=== PATIENT | male | born 1990 | race Caucasian/White ===

== ENCOUNTER 2019-01-26 07:03 | Inpatient (IN) | payer MEDICAID ==
[~2019-01-26] VITALS: Ht 177.8 cm; Wt 72.6 kg
[2019-01-26] MEDS ORDERED: Morphine Sulfate 4mg/ml Inj (IV USE ONLY) IVP ONE ×2 (07:15→08:45)
[2019-01-26 07:27] LABS: BASOPHILS % (AUTO) 1.1 % (0.0-2.0); EOSINOPHILS % (AUTO) 0.1 % (0.0-3.0); HEMATOCRIT 48.5 % (42.0-52.0); LYMPHOCYTES % (AUTO) 12.8 % (20.0-45.0); MEAN CORPUSCULAR VOLUME 105 FL (80-99); MONOCYTES % (AUTO) 4.5 % (1.0-10.0); NEUTROPHILS % (AUTO) 81.4 % (45.0-75.0); PLATELET COUNT 296 K/UL (150-450); RED BLOOD COUNT 4.61 M/UL (4.70-6.10); RED CELL DISTRIBUTION WIDTH 11.8 % (11.6-14.8)
--- NOTE | 2019-01-26 07:31 | Emergency Room Report ---
History of Present Illness General Chief Complaint: Abdominal Pain Source: Patient, EMS Present Illness HPI Patient has a history of alcohol abuse. He states he is also homeless. He states he has a history of pancreatitis. He states his last episode was about a year ago. He states he has been drinking heavily and not drinking much water. He states that about 6 hours ago he developed epigastric pain and recurrent nausea and vomiting consistent with previous episode of pancreatitis. He does not smoke tobacco. He does use marijuana but denies any other drug use. He has not had a drink of alcohol about 8-10 hours. He does have an history of alcohol withdrawal. Allergies: Coded Allergies: PENICILLINS (Verified Allergy, Unknown, 01/26/19) Patient History Past Medical History: see triage record, HTN, other - ETOH abuse, pancreatitis Social History: Reports: alcohol use, drug use - THC; Denies: smoking Reviewed Nursing Documentation: PMH: Agreed; PSxH: Agreed Nursing Documentation-PMH Past Medical History: No History, Except For Hx Hypertension: Yes Review of Systems All Other Systems: negative except mentioned in HPI Physical Exam Vital Signs Date Time Temp Pulse Resp B/P (MAP) Pulse Ox O2 Delivery O2 Flow Rate FiO2 01/26/19 06:58 68 18 140/72 Room Air Sp02 EP Interpretation: reviewed, normal General Appearance: no apparent distress, alert, GCS 15, non-toxic Head: normocephalic, atraumatic Eyes: bilateral eye normal inspection, bilateral eye PERRL ENT: hearing grossly normal, normal pharynx, no angioedema, normal voice Neck: full range of motion, supple/symm/no masses Respiratory: chest non-tender, lungs clear, normal breath sounds, no respiratory distress, no retraction, no accessory muscle use, speaking full sentences Cardiovascular #1: regular rate, rhythm, no edema Gastrointestinal: normal bowel sounds, soft, non-distended, no guarding, no rebound, tenderness - exquistely TTP in the epigastrium Rectal: deferred Musculoskeletal: back normal, gait/station normal, normal range of motion, non- tender Neurologic: alert, oriented x3, responsive, motor strength/tone normal, sensory intact, speech normal Psychiatric: judgement/insight normal, memory normal, mood/affect normal, no suicidal/homicidal ideation Skin: normal color, no rash, warm/dry, well hydrated Medical Decision Making Diagnostic Impression: Primary Impression: Pancreatitis Last Vital Signs Date Time Temp Pulse Resp B/P (MAP) Pulse Ox O2 Delivery O2 Flow Rate FiO2 01/26/19 06:58 68 18 140/72 Room Air Tania Al DO Jan 26, 2019 07:31
[2019-01-26 07:34] LABS: ANION GAP 14 mmol/L (5-15); BLOOD UREA NITROGEN 6 mg/dL (7-18); CALCIUM 9.2 MG/DL (8.5-10.1); CARBON DIOXIDE 28 MMOL/L (21-32); CHLORIDE 101 MMOL/L (98-107); CREATININE 0.8 MG/DL (0.55-1.30); POTASSIUM 4.2 MMOL/L (3.5-5.1); SODIUM 143 MMOL/L (136-145)
[2019-01-26 07:40] LABS: ALANINE AMINOTRANSFERASE 91 U/L (12-78); ALBUMIN 4.7 G/DL (3.4-5.0); ALBUMIN/GLOBULIN RATIO 1.3 (1.0-2.7); ALKALINE PHOSPHATASE 74 U/L (46-116); ASPARTATE AMINO TRANSFERASE 136 U/L (15-37); BILIRUBIN,TOTAL 0.5 MG/DL (0.2-1.0)
--- NOTE | 2019-01-26 07:49 | NUR ---
ED Nurse Note: Pt BIBA from home due to complaints of vomiting since 0500. Pt has a tendency to drink alcohol. A + O x4. Ambulatory. Skin warm to touch.
--- NOTE | 2019-01-26 07:50 | NUR ---
ED Nurse Note: Pt is complaining of abdominal pain 10/10. Non radiating.
[2019-01-26 07:51] VITALS: BP 126/71
[2019-01-26 07:53] LABS: APPEARANCE,URINE CLEAR; BILIRUBIN, URINE NEGATIVE (NEGATIVE); GLUCOSE, URINE (UA) 1+ (NEGATIVE); KETONES,URINE 2+ (NEGATIVE); LEUKOCYTE ESTERASE ,URINE NEGATIVE (NEGATIVE); NITRITE,URINE NEGATIVE (NEGATIVE); PH,URINE 6.5 (4.5-8.0); PROTEIN,URINE 2+ (NEGATIVE); UROBILINOGEN,URINE NORMAL MG/DL (0.0-1.0)
[2019-01-26 08:04] LABS: COLOR,URINE YELLOW
--- NOTE | 2019-01-26 08:55 | NUR ---
ED Nurse Note: Pt states that he will have all of his belongings and bakcpack taken back home w/ friend.
--- NOTE | 2019-01-26 09:05 | NUR ---
ED Nurse Note: Spoke to US Evrent, and notified her of the order. As per US Evrent, ERMD said okay to wait until admit to do US due to pt having abdominal pain. Will continue to monitor.
[2019-01-26] MEDS ORDERED: NKM (09:41)
[2019-01-26 10:03] VITALS: BP 137/96
[2019-01-26 11:44] VITALS: BP 134/78
--- NOTE | 2019-01-26 12:54 | NUR ---
ED Nurse Note: US completed at the bedside.
--- NOTE | 2019-01-26 13:01 | NUR ---
ED Nurse Note: Gave telephone report to LAUREN Soto.
--- NOTE | 2019-01-26 13:03 | NUR ---
ED Nurse Note: Admission packet pending.
--- NOTE | 2019-01-26 13:30 | NUR ---
ED Nurse Note: Pt.transferred via gurney to Tele with all belongings. Pt. attached to playground monitor for continuous monitoring. IV access intact and patent. EKG, admission packet and belongings list endorsed to the receiving nurse LAUREN Soto. No s/s of acute distress noted during the transfer
[2019-01-26 13:48] VITALS: BP 163/103
--- NOTE | 2019-01-26 13:59 | NUR ---
NURSE NOTES: received pt aox4, sacral intact, call light within reach. no sob. relayed to Dr Garduno re sbp awaiting admit orders no n/v at this time.
[2019-01-26] MEDS ORDERED: Morphine Sulfate 2mg/ml Inj(IV/IM USE ONLY) IVP PRN (14:15)
[2019-01-26] MEDS ORDERED: Morphine Sulfate 4mg/ml Inj (IV USE ONLY) IVP PRN (14:15)
--- NOTE | 2019-01-26 14:29 | History & Physical ---
History and Physical History & Physicial HP dictated # [id number] Nishant Garduno MD Jan 26, 2019 14:29
[2019-01-26 15:37] VITALS: BP 142/120
[2019-01-26] MEDS ORDERED: D5 1/2NS w/KCl 20mEq 1,000 ML IV SCH (16:00)
[2019-01-26] MEDS: Morphine Sulfate 4mg/ml Inj (IV USE ONLY) IVP PRN (18:01)
[2019-01-26] MEDS: D5 1/2NS w/KCl 20mEq 1,000 ML IV SCH (18:01)
--- NOTE | 2019-01-26 19:17 | NUR ---
HAND-OFF: Report given to AMEE AGUILAR.
--- NOTE | 2019-01-26 19:20 | NUR ---
NURSE NOTES: Report received from LAUREN Soto. Pt is lying comfortably in semi-fowlers with no signs of distress. Pt is A+Ox4 and shows no signs of pain/SOB. Respirations are even and unlabored on room air. IV site is patent, intact, and running fluids @ prescribed rate. Bed is at lowest position, brakes engaged, siderails x3, bed alarm on, and call light within reach. Pt is in stable condition at this time; will continue to monitor.
[2019-01-26 20:00] VITALS: BP 132/94
[2019-01-27] VITALS: BP 145/86
[2019-01-27] MEDS: D5 1/2NS w/KCl 20mEq 1,000 ML IV SCH ×4 (00:36→21:03)
[2019-01-27] MEDS: Morphine Sulfate 2mg/ml Inj(IV/IM USE ONLY) IVP PRN (05:29)
--- NOTE | 2019-01-27 07:07 | NUR ---
HAND-OFF: Report given to LAUREN Peter. Pt is in stable condition; plan of care endorsed.
--- NOTE | 2019-01-27 07:10 | NUR ---
NURSE NOTES: I received the patient awake and resting in bed. Patient alert and oriented x4. Patient denied experiencing pain. Bed in the lowest position and call light within reach. I will continue to monitor the patient and implement care.
[2019-01-27 07:27] LABS: BASOPHILS % (AUTO) 0.9 % (0.0-2.0); HEMATOCRIT 43.7 % (42.0-52.0); HEMOGLOBIN 14.9 G/DL (14.2-18.0); LYMPHOCYTES % (AUTO) 14.8 % (20.0-45.0); MEAN CORPUSCULAR VOLUME 105 FL (80-99); MONOCYTES % (AUTO) 9.6 % (1.0-10.0); NEUTROPHILS % (AUTO) 74.7 % (45.0-75.0); PLATELET COUNT 196 K/UL (150-450); RED BLOOD COUNT 4.16 M/UL (4.70-6.10); RED CELL DISTRIBUTION WIDTH 11.5 % (11.6-14.8)
[2019-01-27 07:45] LABS: CHOLESTEROL 137 MG/DL (< 200); HDL CHOLESTEROL 75 MG/DL (40-60); TRIGLYCERIDES 62 MG/DL (30-150)
[2019-01-27 08:00] VITALS: BP 132/97
--- NOTE | 2019-01-27 08:20 | NUR ---
NURSE NOTES: Dr. Garduno made aware of patient's magnesium level of 1.3. Order received and entered.
--- NOTE | 2019-01-27 10:36 | NUR ---
CASE MANAGEMENT:REVIEW 28 YR OLD MALE BIBA FROM [facility] CC: ABDOMINAL PAIN W/ITH N/V SI: PANCREATITIS. ETOH ABUSE 97.5 68 18 140/72 96% ON RA LIPASE>2000 IS: IV ZOFRAN IV PEPCID 1L NS BOLUS IV MORPHINE : TO TELEMETRY IS: IVF@125/HR INTERQUAL CRITERIA MET
[2019-01-27] MEDS: Morphine Sulfate 4mg/ml Inj (IV USE ONLY) IVP PRN ×2 (10:59→18:29)
[2019-01-27 12:08] VITALS: BP 155/95
--- NOTE | 2019-01-27 12:25 | General Progress Note ---
Assessment/Plan Problem List: (1) Acute pancreatitis ICD Codes: K85.90 - Acute pancreatitis without necrosis or infection, unspecified SNOMED: 463000528 (2) Hypomagnesemia ICD Codes: E83.42 - Hypomagnesemia SNOMED: 169459488 (3) Abdominal pain ICD Codes: R10.9 - Unspecified abdominal pain SNOMED: 49258717 Assessment/Plan Continue n.p.o. status. Continue with the pain medications. Repeat lipase tomorrow. Continue with proton pump inhibitors. Replete magnesium Follow magnesium level. Subjective Allergies: Coded Allergies: PENICILLINS (Verified Allergy, Unknown, 01/26/19) Subjective Patient still has abdominal pain. Objective Last 24 Hour Vital Signs Date Time Temp Pulse Resp B/P (MAP) Pulse Ox O2 Delivery O2 Flow Rate FiO2 01/27/19 12:08 98.6 97 16 155/95 (115) 100 01/27/19 11:29 98.7 01/27/19 11:25 68 01/27/19 08:58 Room Air 01/27/19 08:00 98.7 63 18 132/97 (109) 100 01/27/19 07:44 62 01/27/19 04:00 67 01/27/19 00:00 63 01/27/19 00:00 99.0 64 20 145/86 (105) 100 01/26/19 21:00 Room Air 01/26/19 20:00 99.6 77 20 132/94 (107) 99 01/26/19 15:37 99.1 86 18 142/120 (127) 99 01/26/19 15:31 69 01/26/19 14:00 Room Air 01/26/19 13:48 98.3 80 18 163/103 (123) 99 01/26/19 13:30 98.0 78 17 128/76 100 Room Air Intake and Output 01/26/19 01/27/19 19:00 07:00 Intake Total 2150 ml Output Total 500 ml Balance 2150 ml -500 ml Intake IV Total 2150 ml Output Urine Total 500 ml # Voids 3 Laboratory Tests 01/27/19 05:05: White Blood Count 6.0, Red Blood Count 4.16L, Hemoglobin 14.9, Hematocrit 43.7, Mean Corpuscular Volume 105H, Mean Corpuscular Hemoglobin 35.7H, Mean Corpuscular Hemoglobin Concent 34.0, Red Cell Distribution Width 11.5L, Platelet Count 196, Mean Platelet Volume 5.4L, Neutrophils (%) (Auto) 74.7, Lymphocytes (%) (Auto) 14.8L, Monocytes (%) (Auto) 9.6, Eosinophils (%) (Auto) 0.0, Basophils (%) (Auto) 0.9, Hemoglobin A1c 4.9, Magnesium Level 1.3L, Triglycerides Level 62, Cholesterol Level 137, LDL Cholesterol 45, HDL Cholesterol 75H, Cholesterol/HDL Ratio 1.8L Height (Feet): 5 Height (Inches): 10.00 Weight (Pounds): 160 Cardiovascular: normal rate Respiratory/Chest: lungs clear Abdomen: tender Edema: no edema noted Generalized Nishant Garduno MD Jan 27, 2019 12:25
--- NOTE | 2019-01-27 13:51 | History and Physical Report ---
DATE OF ADMISSION: 01/26/2019 CHIEF COMPLAINT: Abdominal pain, nausea, and vomiting. HISTORY OF PRESENT ILLNESS: This is a 28-year-old white male, who is homeless. The patient has a long history of alcohol abuse since age of 15, currently is taking few pints of vodka every day. He started having vomiting and abdominal pain last night, and finally he came to the emergency room today. He was diagnosed with acute pancreatitis and was admitted. PAST MEDICAL HISTORY: The patient has had previous history of pancreatitis and also history of hypertension, but he was not taking any medications. MEDICATIONS: None on admission. ALLERGIES: Reported to penicillin. REVIEW OF SYSTEMS: As above. PHYSICAL EXAMINATION: GENERAL: The patient is a 28-year-old male, he is shaky. He has basically tremors. VITAL SIGNS: Blood pressure is 163/103, pulse 88, respirations 18, and temperature 98.3. HEENT: [place] conjunctivae. Anicteric sclerae. NECK: Supple. LUNGS: Clear to auscultation. HEART: S1, S2 without murmurs or rubs. ABDOMEN: Soft and nontender. EXTREMITIES: No cyanosis or edema. The patient has a dropped foot bilaterally and cannot bend his toes. LABORATORY FINDINGS: The CBC shows a WBC of 7000, hematocrit is 48.5, hemoglobin 16, and platelets 296,000. The chemistry panel shows a sodium 143, potassium 4.2, chloride 101, BUN is 6, creatinine 0.8, and glucose is 122. Calcium is 9.2. Albumin is 4.7. UA was positive for 2+ protein and 2+ ketones. ASSESSMENT: This is a 28-year-old male, who was admitted with acute pancreatitis with lipase of more than 2000. He has some alcoholic liver disease as well and his AST is also 136 with ALT of 91. He has some problems with his foot, he is unable to bend his toes, so he likely has some neuropathy, which may be related to his alcohol abuse and vitamin deficiency needs to be ruled out. PLAN: The patient will be on IV fluids, NPO, and pain medication will be prescribed. The patient's lab will be followed with a folate level and B12 as well. The patient will be on multivitamins. Nishant Garduno M.D. DR: COSME JOB#: [id number] CC:
[2019-01-27 16:00] VITALS: BP 151/102
--- NOTE | 2019-01-27 16:23 | NUR ---
NURSE NOTES: Dr. Garduno made aware of patient's high blood pressure. No new orders at this time. Dr. Garduno said he will not take the medication outside, so there is no point. Patient resting in bed, bed in lowest position and call light within reach.
--- NOTE | 2019-01-27 19:15 | NUR ---
NURSE NOTES: Received report from Blair Almanza RN. Pt is resting in the bed w/o distress in RA. Refused to take VS check at this time to rest. SR in the monitor. IV med is running as ordered. A friend is at the bedside, pt mentioned that he is the only family for him. Pt is A&O x4, bed in lowest condition, breaks are engaged. Call light and side table are w/in reach. Mg 1.3, endorsed that PCP is aware of it and 5 bags of mg was given during the day. Will follow plans of care.
--- NOTE | 2019-01-27 19:18 | Cardiology Report ---
APPROVED REPORT EKG Measurement Heart [id number] PA [id number] Normal sinus rhythm Normal ECG
--- NOTE | 2019-01-27 19:27 | NUR ---
HAND-OFF: Report given to Alondra Cox RN.
[2019-01-28] VITALS (7 sets, daily range): BP systolic 112–156; BP diastolic 80–103
--- NOTE | 2019-01-28 00:12 | NUR ---
NURSE NOTES: Pt is resting in the bed w/o distress. No c/o of pain at this time. Will continue to monitor.
[2019-01-28] MEDS: Morphine Sulfate 2mg/ml Inj(IV/IM USE ONLY) IVP PRN (04:03)
[2019-01-28] MEDS: D5 1/2NS w/KCl 20mEq 1,000 ML IV SCH ×4 (04:04→17:24)
--- NOTE | 2019-01-28 07:04 | NUR ---
HAND-OFF: Report given to Blair Almanza RN.
--- NOTE | 2019-01-28 07:24 | NUR ---
NURSE NOTES: Received patient sleeping in bed. Patient awakes to name and alert and oriented x4. Patient does not display any signs of distress or SOB. Bed in the lowest position and call light within reach. Family member in the room with patient. I will continue to monitor the patient and implement care.
[2019-01-28] MEDS: Morphine Sulfate 4mg/ml Inj (IV USE ONLY) IVP PRN ×3 (08:09→20:28)
--- NOTE | 2019-01-28 11:36 | NUR ---
Social Service Note SW met with patient to assess for homelessness. Patient is alert, oriented and verbally responsive. Patient states his parents when he was a teenager and would move between them. Patient states when he turned 18 he was no longer going to be supported by his family and went out on his own. Patient states he has been homeless for several years. Patient states that it is a combination of reason why he continues to stay homeless. Patient struggles with alcohol dependency. Patient states he started drinking at 15 and drinks Vodka almost daily now. Patient states he has been placed in treatment, but has poor follow through upon discharge. Patient doesn't attend AA and doesn't obtain a sponsor. Patient coughlin handles and recycles to support his alcohol consumption. Patient states he is originally from [facility] and came to [place] for a change in [place]. Patient's friend Ajit Bui who is at bedside is also from [place]. They do not utilize shelters and move around from place to place. Patient states staying in the [place] area primarily. SW discussed community resources such as DPSS offices to apply for GR/FS, Community Care Clinics, Substance abuse assessment centers such as [facility], [address] [place] [address] line and the [place] custodial program. Patient states he will not require placement upon discharge. Resources placed in chart along with homeless check list. Braydon monitor and be available as needed. Emergency contact Ajit Bui [phone].
--- NOTE | 2019-01-28 12:21 | NUR ---
CASE MANAGEMENT:REVIEW 01/28/19 SI: ACUTE PANCREATITIS. ETOH ABUSE 98.1 86 20 142/98 100% ON RA LIPASE+1424 IS: IVF@150/HR PROTONIX PO QD IV MORPHINE Q3HRS PRN : TELEMETRY STATUS
--- NOTE | 2019-01-28 14:07 | General Progress Note ---
Assessment/Plan Problem List: (1) Acute pancreatitis ICD Codes: K85.90 - Acute pancreatitis without necrosis or infection, unspecified SNOMED: 538313810 (2) Hypomagnesemia ICD Codes: E83.42 - Hypomagnesemia SNOMED: 783905478 (3) Abdominal pain ICD Codes: R10.9 - Unspecified abdominal pain SNOMED: 20993143 Assessment/Plan Continue n.p.o. status. Continue with the pain medications. Repeat lipase tomorrow. Continue with proton pump inhibitors. check magnesium Follow magnesium level. Subjective Allergies: Coded Allergies: PENICILLINS (Verified Allergy, Unknown, 01/26/19) Subjective Patient still has abdominal pain. Objective Last 24 Hour Vital Signs Date Time Temp Pulse Resp B/P (MAP) Pulse Ox O2 Delivery O2 Flow Rate FiO2 01/28/19 12:00 98.2 66 20 146/86 (106) 100 01/28/19 09:00 Room Air 01/28/19 08:39 97.7 01/28/19 08:00 98.1 86 20 142/98 (113) 100 01/28/19 07:42 67 01/28/19 04:00 97.7 88 18 115/81 (92) 98 01/28/19 03:54 72 01/28/19 00:00 97.9 90 18 112/95 (101) 99 01/27/19 23:35 71 01/27/19 21:00 Room Air 01/27/19 19:27 64 01/27/19 16:00 98.2 65 18 151/102 (118) 99 01/27/19 15:07 68 Intake and Output 01/27/19 01/28/19 19:00 07:00 Intake Total 400 ml 900 ml Output Total 1400 ml Balance -1000 ml 900 ml Intake IV Total 400 ml 900 ml Output Urine Total 1400 ml Laboratory Tests 01/28/19 06:15: Lipase 1424H Height (Feet): 5 Height (Inches): 10.00 Weight (Pounds): 160 Cardiovascular: normal rate Respiratory/Chest: lungs clear Abdomen: tender Nishant Garduno MD Jan 28, 2019 14:07
--- NOTE | 2019-01-28 16:43 | NUR ---
NURSE NOTES: Patient transferred to [facility]. Report given to LAUREN Patel. Patient's belongings reviewed with the accepting RN and the patient. Patient confirmed he was in possession of all his belongings. Patient in stable condition.
--- NOTE | 2019-01-28 16:55 | NUR ---
NURSE NOTES: Patient arrived the unit from [facility] accompanied by RNSuri to the floor. Patient alert x4, on room air, no sign of distress and shortness of breath; Vitals taken upon arrival and recorded. Belonging lists signed by transferring and receiving nurse. Skin is intact, IV on LAC flushes well. Bed at lowest position, side rails up x2, breaks engaged, call light within reach. Will keep monitoring.
[2019-01-28] MEDS ORDERED: Morphine Sulfate 2mg/ml Inj(IV/IM USE ONLY) IVP PRN (17:00)
--- NOTE | 2019-01-28 17:26 | NUR ---
NURSE NOTES: Patient transferred from [facility] with a new bag of D50.45 NS w/KCl 20 mEq 1000cc running @150cc; after the medication order transferred from tel to [facility] still the eMAR shows 1700 D50.45 NS w/KCl 20 mEq 1000cc not given; I scanned the same bag.
--- NOTE | 2019-01-28 19:24 | NUR ---
HAND-OFF: Report given to LAUREN Chicas.
--- NOTE | 2019-01-28 19:25 | NUR ---
NURSE NOTES: Report taken from LAUREN Patel. Patient is awake and in bed, A&Ox4. Is in 10/10 pain, primarily in the abdomen region, some pain radiating to the back. IV site c/d/i and patent running IVF at 100ml/hr. No skin issues present. No signs of distress on room air. Continue to monitor, bed in lowest position, call light within reach.
[2019-01-28] MEDS ORDERED: Tamsulosin 0.4mg cap ORAL SCH (21:00)
[2019-01-29] MEDS: D5 1/2NS w/KCl 20mEq 1,000 ML IV SCH ×4 (00:10→21:08)
[2019-01-29] MEDS: Morphine Sulfate 4mg/ml Inj (IV USE ONLY) IVP PRN ×6 (00:43→21:59)
[2019-01-29 01:00] VITALS: BP 144/98
[2019-01-29 04:00] VITALS: BP 130/83
[2019-01-29 07:22] LABS: ALANINE AMINOTRANSFERASE 50 U/L (12-78); ALBUMIN 3.7 G/DL (3.4-5.0); ALBUMIN/GLOBULIN RATIO 1.1 (1.0-2.7); ALKALINE PHOSPHATASE 66 U/L (46-116); ANION GAP 9 mmol/L (5-15); ASPARTATE AMINO TRANSFERASE 55 U/L (15-37); BILIRUBIN,DIRECT 0.2 MG/DL (0.0-0.3); BILIRUBIN,TOTAL 1.1 MG/DL (0.2-1.0); BLOOD UREA NITROGEN 7 mg/dL (7-18); CALCIUM 9.4 MG/DL (8.5-10.1); CARBON DIOXIDE 28 MMOL/L (21-32); CHLORIDE 99 MMOL/L (98-107); CREATININE 0.8 MG/DL (0.55-1.30); POTASSIUM 3.9 MMOL/L (3.5-5.1); SODIUM 136 MMOL/L (136-145)
--- NOTE | 2019-01-29 07:24 | NUR ---
HAND-OFF: Report given to LAUREN Woodard. Patient in bed, vitals signs stable.
[2019-01-29 07:26] LABS: BASOPHILS % (AUTO) 1.4 % (0.0-2.0); EOSINOPHILS % (AUTO) 1.4 % (0.0-3.0); HEMATOCRIT 40.3 % (42.0-52.0); HEMOGLOBIN 13.7 G/DL (14.2-18.0); LYMPHOCYTES % (AUTO) 19.9 % (20.0-45.0); MEAN CORPUSCULAR VOLUME 105 FL (80-99); MONOCYTES % (AUTO) 13.1 % (1.0-10.0); NEUTROPHILS % (AUTO) 64.2 % (45.0-75.0); PLATELET COUNT 170 K/UL (150-450); RED BLOOD COUNT 3.85 M/UL (4.70-6.10); RED CELL DISTRIBUTION WIDTH 11.6 % (11.6-14.8)
--- NOTE | 2019-01-29 08:04 | NUR ---
NURSE NOTES: Patient is awake when name called,IV fluids infusing as ordered,no complaints of pain at this time Patient is NPO ,IV fluids infusing as ordered. Call light within reach.
[2019-01-29 08:18] VITALS: BP 145/88
--- NOTE | 2019-01-29 09:07 | NUR ---
CASE MANAGEMENT:REVIEW 01/29/19 SI: ACUTE PANCREATITIS. ETOH ABUSE 98.2 66 20 145/88 99% ON RA H/H-13.7/40.3 LIPASE+1668 IS: IVF@150/HR PROTONIX PO QD IV MORPHINE Q3HRS PRN : MED/SURG STATUS 3 [facility]
[2019-01-29 12:00] VITALS: BP 140/89
--- NOTE | 2019-01-29 12:49 | General Progress Note ---
Assessment/Plan Problem List: (1) Acute pancreatitis ICD Codes: K85.90 - Acute pancreatitis without necrosis or infection, unspecified SNOMED: 666329258 (2) Hypomagnesemia ICD Codes: E83.42 - Hypomagnesemia SNOMED: 084963367 (3) Abdominal pain ICD Codes: R10.9 - Unspecified abdominal pain SNOMED: 70607626 Assessment/Plan Continue n.p.o. status. Continue with the pain medications. Repeat lipase tomorrow. Continue with proton pump inhibitors. Subjective Allergies: Coded Allergies: PENICILLINS (Verified Allergy, Unknown, 01/26/19) Subjective Patient still has abdominal pain. Objective Last 24 Hour Vital Signs Date Time Temp Pulse Resp B/P (MAP) Pulse Ox O2 Delivery O2 Flow Rate FiO2 01/29/19 12:00 98.2 67 20 140/89 (106) 99 01/29/19 09:00 Room Air 01/29/19 08:18 98.2 66 20 145/88 (107) 99 01/29/19 04:00 98.1 70 18 130/83 (99) 98 01/29/19 01:00 97.3 81 17 144/98 (113) 98 01/28/19 21:00 Room Air 01/28/19 20:00 97.1 69 17 148/90 (109) 98 01/28/19 16:46 98.2 89 18 156/103 (120) 98 01/28/19 16:18 98.1 01/28/19 16:00 98.1 70 140/80 (100) Intake and Output 01/28/19 01/29/19 18:59 06:59 Intake Total 150 ml 150 ml Balance 150 ml 150 ml Intake IV Total 150 ml 150 ml Laboratory Tests 01/29/19 05:25: White Blood Count 4.0L, Red Blood Count 3.85L, Hemoglobin 13.7L, Hematocrit 40.3L, Mean Corpuscular Volume 105H, Mean Corpuscular Hemoglobin 35.7H, Mean Corpuscular Hemoglobin Concent 34.1, Red Cell Distribution Width 11.6, Platelet Count 170, Mean Platelet Volume 5.4L, Neutrophils (%) (Auto) 64.2, Lymphocytes ( %) (Auto) 19.9L, Monocytes (%) (Auto) 13.1H, Eosinophils (%) (Auto) 1.4, Basophils (%) (Auto) 1.4, Sodium Level 136, Potassium Level 3.9, Chloride Level 99, Carbon Dioxide Level 28, Anion Gap 9, Blood Urea Nitrogen 7, Creatinine 0.8 , Estimat Glomerular Filtration Rate > 60, Glucose Level 89, Calcium Level 9.4, Magnesium Level 1.8, Total Bilirubin 1.1H, Direct Bilirubin 0.2, Aspartate Amino Transf (AST/SGOT) 55H, Alanine Aminotransferase (ALT/SGPT) 50, Alkaline Phosphatase 66, Total Protein 7.2, Albumin 3.7, Globulin 3.5, Albumin/Globulin Ratio 1.1, Lipase 1668H Height (Feet): 5 Height (Inches): 10.00 Weight (Pounds): 160 Respiratory/Chest: lungs clear Abdomen: tender Nishant Garduno MD Jan 29, 2019 12:49
--- NOTE | 2019-01-29 13:20 | NUR ---
RD ASSESSMENT & RECOMMENDATIONS SEE CARE ACTIVITY FOR COMPLETE ASSESSMENT DAILY ESTIMATED NEEDS: Needs based on Pancreatitis/ 77kg 25-30 kcals/kg 6502-2396 total kcals 1-1.5 g protein/kg 77-115 g total protein 25-30 mL/kg 7855-1936 total fluid mLs NUTRITION DIAGNOSIS: Altered nutrition related lab values R/T pancreatitis as evidenced by elev lipase (1668) CURRENT DIET:NPO PO DIET RECOMMENDATIONS: Initiate diet per MD -> Low Fat ADDITIONAL RECOMMENDATIONS: * Standing wt as able for accurate CBW * Monitor NPO status * Add MVI x 1, Folic acid 1mg QD, Thiamine 100mg QD- ETOH abuse
[2019-01-29 16:00] VITALS: BP 126/86
--- NOTE | 2019-01-29 16:43 | Diagnostic Imaging Report ---
Indication:Abdominal pain Technique: Grayscale and duplex Doppler imaging of the abdomen performed. Comparison: None Findings: The liver is unremarkable. The gallbladder is unremarkable. The demonstrated part of the aorta and IVC show no abnormalities. The area of the pancreatic head is somewhat prominent. This is questionable. Consider evaluation with CT or MRI for confirmation. Both kidneys appear unremarkable. The spleen is normal in size. There is no biliary ductal dilatation identified. Doppler evaluation of the main portal vein shows patency. There is no ascites. No hydronephrosis seen. The CBD is 4 mm. Impression: Prominence of the area of the pancreatic head. Consider further evaluation with CT. Negative exam otherwise
--- NOTE | 2019-01-29 19:06 | NUR ---
NURSE NOTES: Patient resting,complaint of pain,requesting pain medication,pain med given as ordered.IV fluids continue to infuse as ordered.Patient remains NPO as ordered.Call light within reach.
--- NOTE | 2019-01-29 19:30 | NUR ---
HAND-OFF: Report given to Mona AGUILAR
--- NOTE | 2019-01-29 19:30 | NUR ---
NURSE NOTES: Received patient in no apparent distress. A&OX4. IV site patent and intact. Bed in lowest position. Call light within reach. Will continue to monitor.
[2019-01-29 20:00] VITALS: BP 150/91
[2019-01-30] VITALS (7 sets, daily range): BP systolic 123–148; BP diastolic 83–99
[2019-01-30] MEDS: Morphine Sulfate 4mg/ml Inj (IV USE ONLY) IVP PRN ×7 (01:15→23:24)
[2019-01-30] MEDS: D5 1/2NS w/KCl 20mEq 1,000 ML IV SCH ×4 (02:31→23:25)
[2019-01-30 07:09] LABS: BASOPHILS % (AUTO) 1.5 % (0.0-2.0); EOSINOPHILS % (AUTO) 2.7 % (0.0-3.0); HEMATOCRIT 42.5 % (42.0-52.0); HEMOGLOBIN 14.4 G/DL (14.2-18.0); LYMPHOCYTES % (AUTO) 22.7 % (20.0-45.0); MEAN CORPUSCULAR VOLUME 105 FL (80-99); MONOCYTES % (AUTO) 17.7 % (1.0-10.0); NEUTROPHILS % (AUTO) 55.4 % (45.0-75.0); PLATELET COUNT 206 K/UL (150-450); RED BLOOD COUNT 4.05 M/UL (4.70-6.10); RED CELL DISTRIBUTION WIDTH 11.4 % (11.6-14.8); WHITE BLOOD COUNT 4.1 K/UL (4.8-10.8)
[2019-01-30 07:25] LABS: ANION GAP 11 mmol/L (5-15); BLOOD UREA NITROGEN 3 mg/dL (7-18); CARBON DIOXIDE 28 MMOL/L (21-32); CHLORIDE 98 MMOL/L (98-107); CREATININE 0.7 MG/DL (0.55-1.30); POTASSIUM 4.5 MMOL/L (3.5-5.1); SODIUM 137 MMOL/L (136-145)
--- NOTE | 2019-01-30 07:30 | NUR ---
HAND-OFF: Report given to Ezra AGUILAR.
--- NOTE | 2019-01-30 07:30 | NUR ---
NURSE NOTES: Received pt from LAUREN KEARNEY. Pt is alert and orient x4. pt is in RA. No SOB or acute respiratory distress noted. pt has intact iv access RFA 22G is running well. Pt is NPO as order. All needs attended, bed is locked and is in the lowest position. call light within easy reach. will continue to monitor.
--- NOTE | 2019-01-30 09:15 | NUR ---
CASE MANAGEMENT:REVIEW 01/30/19 SI: ACUTE PANCREATITIS. ETOH ABUSE 98.2 70 19 141/99 100% ON RA LIPASE+712 IS: IVF@150/HR PROTONIX PO QD IV MORPHINE Q3HRS PRN : MED/SURG STATUS 3 [facility] DCP: FROM HOME
--- NOTE | 2019-01-30 14:45 | General Progress Note ---
Assessment/Plan Problem List: (1) Acute pancreatitis ICD Codes: K85.90 - Acute pancreatitis without necrosis or infection, unspecified SNOMED: 063180970 (2) Hypomagnesemia ICD Codes: E83.42 - Hypomagnesemia SNOMED: 193596393 (3) Abdominal pain ICD Codes: R10.9 - Unspecified abdominal pain SNOMED: 41028080 Assessment/Plan clear liquid diet Continue with the pain medications. Repeat lipase tomorrow. Continue with proton pump inhibitors. Subjective Allergies: Coded Allergies: PENICILLINS (Verified Allergy, Unknown, 01/26/19) Subjective better Objective Last 24 Hour Vital Signs Date Time Temp Pulse Resp B/P (MAP) Pulse Ox O2 Delivery O2 Flow Rate FiO2 01/30/19 12:35 98.2 01/30/19 12:00 97.9 62 20 123/85 (98) 99 01/30/19 09:00 Room Air 01/30/19 08:00 98.2 70 19 141/99 (113) 100 01/30/19 04:00 97.8 73 18 148/92 (110) 100 01/30/19 00:00 98.8 63 20 134/83 (100) 100 01/29/19 20:23 Room Air 01/29/19 20:00 98.5 69 20 150/91 (110) 100 01/29/19 16:00 98.2 68 20 126/86 (99) 98 Intake and Output 01/29/19 01/30/19 18:59 06:59 Intake Total 1650 ml 1800 ml Output Total 400 ml Balance 1650 ml 1400 ml Intake IV Total 1650 ml 1800 ml Output Urine Total 400 ml # Voids 3 Laboratory Tests 01/30/19 05:25: White Blood Count 4.1L, Red Blood Count 4.05L, Hemoglobin 14.4, Hematocrit 42.5 , Mean Corpuscular Volume 105H, Mean Corpuscular Hemoglobin 35.5H, Mean Corpuscular Hemoglobin Concent 33.8, Red Cell Distribution Width 11.4L, Platelet Count 206, Mean Platelet Volume 5.0L, Neutrophils (%) (Auto) 55.4, Lymphocytes (%) (Auto) 22.7, Monocytes (%) (Auto) 17.7H, Eosinophils (%) (Auto) 2.7, Basophils (%) (Auto) 1.5, Sodium Level 137, Potassium Level 4.5, Chloride Level 98, Carbon Dioxide Level 28, Anion Gap 11, Blood Urea Nitrogen 3L, Creatinine 0.7, Estimat Glomerular Filtration Rate > 60, Glucose Level 92, Calcium Level 10.0, Magnesium Level 1.8, Lipase 712H Height (Feet): 5 Height (Inches): 10.00 Weight (Pounds): 160 Cardiovascular: normal rate Respiratory/Chest: lungs clear Abdomen: soft, tender Edema: no edema noted Generalized Nishant Garduno MD Jan 30, 2019 14:45
--- NOTE | 2019-01-30 19:57 | NUR ---
HAND-OFF: Report given to LAUREN FITZPATRICK.
--- NOTE | 2019-01-30 20:00 | NUR ---
NURSE NOTES: Patient received in bed, awake and alert. C/o pain at this time, will medicate as prescribed. IV intact and patent, secured with more tape. IVF infusing. Call light and urinal within reach. Patient instructed to call for assistance prior to ambulating to bathroom or any other needs. Verbalized understanding. Will continue to monitor. Addendum: 01/30/19 at 2039 by NANETTE RASCON RN RN Noted with left AC tenderness and redness from previous IV infiltration. Offered ice pack and pillow support, patient refused.
[2019-01-31 04:25] VITALS: BP 126/81
[2019-01-31] MEDS: Morphine Sulfate 4mg/ml Inj (IV USE ONLY) IVP PRN ×2 (04:26→08:44)
[2019-01-31] MEDS: D5 1/2NS w/KCl 20mEq 1,000 ML IV SCH ×2 (04:30→11:40)
--- NOTE | 2019-01-31 07:45 | NUR ---
NURSE NOTES: Received report from Rickey AGUILAR. Patient is awake alert and oriented x4 during rounds, no acute distress noted. Patient reporting pain in abdomen, will medicate per order. IV intact and asymptomatic. IVF running per order. Side rails padded. Side rails upx3, bed low and locked, call light in reach. Will continue to monitor.
--- NOTE | 2019-01-31 07:51 | NUR ---
HAND-OFF: Report given to Nova AGUILAR.
[2019-01-31 08:00] VITALS: BP 135/80
[2019-01-31 09:30] LABS: ANION GAP 7 mmol/L (5-15); BLOOD UREA NITROGEN 2 mg/dL (7-18); CALCIUM 8.6 MG/DL (8.5-10.1); CARBON DIOXIDE 28 MMOL/L (21-32); CHLORIDE 100 MMOL/L (98-107); CREATININE 0.7 MG/DL (0.55-1.30); PHOSPHORUS 4.8 MG/DL (2.5-4.9); POTASSIUM 4.7 MMOL/L (3.5-5.1); SODIUM 135 MMOL/L (136-145)
--- NOTE | 2019-01-31 10:13 | NUR ---
NURSE NOTES: Called Dr. Garduno and left voicemail with MD. Reported elevated glucose, low sodium, and low magnesium. Also reported to MD that patient would like to be discharged today and if he is not discharged he would like to sign out AMA. Awaiting callback from MD with further orders. Will continue to monitor.
--- NOTE | 2019-01-31 10:58 | NUR ---
NURSE NOTES: Received callback from Dr. Garduno. Received order for magnesium replacement. MD is aware that patient wants to sign out AMA. No discharge order given. Will follow up with patient.
[2019-01-31 11:30] VITALS: BP 129/84
--- NOTE | 2019-01-31 11:47 | NUR ---
AMA: Patient signed out AMA. Patient educated on the risks of leaving against medical advice, including worsening of condition and . Patient is aware of risks and stated he wanted to leave despite risks. Patient is alert and oriented, of sound mind and able to make own decisions. Patient declined services for placement and resources outside of the hospital, insisted on leaving. IV removed intact. Nursing excavating supervisor aware. Patient left unit at 1146 accompanied by friend. All belongings sent with patient. SEE AMA FORM.
--- NOTE | 2019-02-03 08:56 | Discharge Summary ---
Discharge Summary Discharge Summary _ DATE OF ADMISSION: 01/26/2019 DATE OF DISCHARGE: 01/31/2019 Patient left AGAINST MEDICAL ADVICE REASON FOR ADMISSION: 28 years old male, homeless, with past medical history of pancreatitis, hypertension ( not on any medication), long history of alcohol abuse , since age of 15 , presented to emergency department with nausea ,vomiting and abdominal pain. Patient apparently takes 2 pints of vodka every day. Patient did not drink alcohol for about 8-10 hours prior to presentation to ED. He denied smoking tobacco, but admitted to using marijuana . He denied use of illicit street drugs. Upon evaluation vital signs were stable. No tachycardia. Laboratory workup revealed no leukocytosis , stable hemoglobin and hematocrit. Urinalysis revealed +2 protein, but no evidence of UTI. Electrolytes and renal parameters were stable. Elevated liver enzymes with AST 136 and ALT 91. Albumin 4.7 Urine toxicology screen was positive for marijuana. Serum alcohol level was 203. Abdominal ultrasound revealed prominence of the area of the pancreatic head. Negative exam otherwise. Lipase >2000. Patient subsequently was admitted to medical surgical floor for further management HOSPITAL COURSE: Patient admitted to medical surgical floor. Patient was kept n.p.o. initially and started on the IV fluids. Pain management was addressed. Symptomatic treatment provided. Antiemetic provided as needed. Patient started on GI prophylaxis with Protonix. Noted low magnesium , and magnesium was replaced. Patient was followed-up with lipase . Lipase trended down to 513. LFT trending down. AST down to 55, ALT down to normal. Lipid panel stable. Hemoglobin A1c 4.9. On 01/30 patient started on clear liquid diet to advance as tolerated. Patient was counseled on abstinence from alcohol. settlement worker met with the patient to assess for homelessness. Patient verbalized that he did not utilize halfway. settlement worker discussed with patient community resources and community care clinics. Substance abuse assessment centers were discussed and information provided. Patient reported that he did not require placement upon discharge. List of resources was given to patient . On 01/31 patient decided to sign AGAINST MEDICAL ADVICE. The risks and consequences of signing AGAINST MEDICAL ADVICE were discussed with patient in detail. Patient verbalized understanding, nevertheless signed AMA form and left , accompanied by his friend.. FINAL DIAGNOSES: Acute pancreatitis due to ETOH abuse Hypomagnesemia Abdominal pain likely related to acute pancreatitis I have been assigned to dictate discharge summary for this account. I was not involved in the patient's management. Yakelin Smith NP Feb 03, 2019 08:56
== END 2019-01-31 12:07 | disposition left against medical advice (07) | DRG 282 ==
LOC: EDBD 07:03 → EMR 07:29 → EDBEDREQ 08:57 → 2E 13:19 → 3E 01-28 16:43
DX: K85.20 Alcohol induced acute pancreatitis without necrosis or infection (principal); E83.42 Hypomagnesemia; Z88.0 Allergy status to penicillin; Z59.0 Homelessness
CPT/HCPCS: 36415; 76700; 80048; 80053; 80061; 80307; 80329; 81003; 82248; 83036; 83690; 83735; 84100; 85025; 93005; 96361; 96374; 96375; 96376; 99285; J2405

== ENCOUNTER 2019-11-16 16:02 | Inpatient (IN) | payer MEDICAID, OTHER ==
[~2019-11-16] VITALS: Ht 193 cm; Wt 72.3 kg
--- NOTE | 2019-11-16 16:01 | NUR ---
ED Nurse Note: Pt brought in by ambulance c/o abdominal pain in all four quadrants x 3 days. Pt also c/o N/V. Pt has hx of pancreatitis and drinks alcohol every day. Respirations even and unlabored on room air.
[~2019-11-16 16:02] MED LIST: NKM
--- NOTE | 2019-11-16 16:14 | Emergency Room Report ---
History of Present Illness General Chief Complaint: Abdominal Pain Source: Patient Present Illness HPI Disclaimer: Please note that this report is being documented using [employer] technology. This can lead to erroneous entry secondary to incorrect interpretation by the dictating instrument. HPI: 29-year-old male presents for evaluation of abdominal pain. Symptoms present approximately 3 days. Exacerbated by eating but no relieving factors noted. Tenderness in the epigastrium and left upper quadrant with nausea and for process of nonbloody emesis this morning. Patient endorses daily alcohol use approximate 2 to 3 pints of liquor. Has had pancreatitis in the past. Also complaining of chest pain and some difficulty breathing which she attributes to inability to take a deep breath due to his abdominal pain. Denies any cough. Reports fatigue, sweats and chills. Denies any nasal congestion, sore throat, diarrhea or rash. PMH: Pancreatitis, hypertension PSH: Wrist repair Allergies: Penicillin Social Hx: Daily alcohol use, marijuana use Allergies: Coded Allergies: PENICILLINS (Verified Allergy, Unknown, 01/26/19) Nursing Documentation-PMH Past Medical History: No History, Except For Hx Cardiac Problems: Yes Hx Hypertension: Yes Hx Cancer: No Hx Gastrointestinal Problems: Yes - pancriatitis Hx Neurological Problems: No Review of Systems All Other Systems: negative except mentioned in HPI Physical Exam Vital Signs Date Time Temp Pulse Resp B/P (MAP) Pulse Ox O2 Delivery O2 Flow Rate FiO2 11/16/19 15:55 98.4 94 18 137/87 (104) 99 Room Air General: Awake and alert, appears uncomfortable HEENT: NC/AT. EOMI. PERRLA. Dry mucous membranes Cardiovascular: RRR. S1 and S2 normal. No murmur appreciated Resp: Normal work of breathing. No cough, wheezing or crackles appreciated Abdomen: Abdomen is soft, nondistended. Diffusely tender to palpation though particularly in the epigastrium and left upper quadrant. No mass appreciable. Guarding diffusely Skin: Intact. No abrasions, laceration or rash over the exposed skin MSK: Normal tone and bulk. Moving all extremities. No obvious deformity. Neuro: Awake and alert. Mentating appropriately. Medical Decision Making Diagnostic Impression: Primary Impression: Acute pancreatitis Additional Impressions: Abdominal pain Pancreatic pseudocyst ER Course 29-year-old male presents for evaluation of worsening abdominal pain of 3 days duration now with vomiting. Differential includes was not limited to pancreatitis, gastritis, gastroenteritis, cholecystitis, bowel obstruction, diverticulitis, ACS, pneumonia, pulmonary edema. Will obtain labs as well as cardiac enzymes, EKG and chest x-ray to evaluate for his chest pain though I suspect this is of an abdominal origin. Patient will be given IV fluids, antiemetics, pain medication and sent for CT scan of the abdomen. Laboratory Tests Test 11/16/19 16:25 White Blood Count 10.6 K/UL (4.8-10.8) Red Blood Count 4.39 M/UL (4.70-6.10) L Hemoglobin 15.1 G/DL (14.2-18.0) Hematocrit 42.5 % (42.0-52.0) Mean Corpuscular Volume 97 FL (80-99) Mean Corpuscular Hemoglobin 34.5 PG (27.0-31.0) H Mean Corpuscular Hemoglobin Concent 35.6 G/DL (32.0-36.0) Red Cell Distribution Width 9.8 % (11.6-14.8) L Platelet Count 302 K/UL (150-450) Mean Platelet Volume 4.9 FL (6.5-10.1) L Neutrophils (%) (Auto) 81.9 % (45.0-75.0) H Lymphocytes (%) (Auto) 8.6 % (20.0-45.0) L Monocytes (%) (Auto) 8.8 % (1.0-10.0) Eosinophils (%) (Auto) 0.1 % (0.0-3.0) Basophils (%) (Auto) 0.7 % (0.0-2.0) Urine Color Yellow Urine Appearance Slightly cloudy Urine pH 7 (4.5-8.0) Urine Specific [place] 1.010 (1.005-1.035) Urine Protein 2+ (NEGATIVE) H Urine Glucose (UA) Negative (NEGATIVE) Urine Ketones 2+ (NEGATIVE) H Urine Blood Negative (NEGATIVE) Urine Nitrite Negative (NEGATIVE) Urine Bilirubin Negative (NEGATIVE) Urine Urobilinogen 1 MG/DL (0.0-1.0) H Urine Leukocyte Esterase Negative (NEGATIVE) Urine RBC 0 /HPF (0 - 0) Urine WBC 0-2 /HPF (0 - 0) Urine Squamous Epithelial Cells Few /LPF (NONE/OCC) Urine Amorphous Sediment Moderate /LPF (NONE) H Urine Bacteria Few /HPF (NONE) Sodium Level 138 MMOL/L (136-145) Potassium Level 3.0 MMOL/L (3.5-5.1) L Chloride Level 92 MMOL/L (98-107) L Carbon Dioxide Level 32 MMOL/L (21-32) Anion Gap 14 mmol/L (5-15) Blood Urea Nitrogen 5 mg/dL (7-18) L Creatinine 0.7 MG/DL (0.55-1.30) Estimate Glomerular Filtration Rate > 60 mL/min (>60) Glucose Level 140 MG/DL (74-106) H Calcium Level 9.6 MG/DL (8.5-10.1) Total Bilirubin 1.5 MG/DL (0.2-1.0) H Direct Bilirubin 0.5 MG/DL (0.0-0.3) H Aspartate Amino Transferase (AST) 128 U/L (15-37) H Alanine Aminotransferase (ALT) 61 U/L (12-78) Alkaline Phosphatase 136 U/L (46-116) H Troponin I 0.000 ng/mL (0.000-0.056) Total Protein 7.8 G/DL (6.4-8.2) Albumin 3.9 G/DL (3.4-5.0) Globulin 3.9 g/dL Albumin/Globulin Ratio 1.0 (1.0-2.7) Lipase > 2000 U/L (73-393) H EKG Diagnostic Results EKG Time: 16:25 Rate: normal Rhythm: NSR ST Segments: no acute changes Other Impression Sinus rhythm, slight right axis. No ST segment changes. Rhythm Strip Diag. Results Rhythm Strip Time: 16:25 EP Interpretation: yes Rate: 80s Rhythm: NSR, no PVC's, no ectopy Chest X-Ray Diagnostic Results Chest X-Ray Diagnostic Results : Chest X-Ray Ordered: Yes # of Views/Limited/Complete: 1 View Indication: Shortness of Breath EP Interpretation: Yes Interpretation: no consolidation, no effusion, no pneumothorax, no acute cardiopulmonary disease Impression: No acute disease Electronically Signed by: Electronically signed by Dr. Christopher Loya CT/MRI/US Diagnostic Results CT/MRI/US Diagnostic Results : Impression Fullness in the head of the pancreas with surrounding edema is concerning for pancreatitis. Indeterminate 5.3 x 2.2 cm lobulated cystic structure involving the head and uncinate process of the pancreas, possibly a pseudocyst. Gallbladder distention. No calcified gallstones or biliary dilatation. The liver is diffusely hypodense suggestive of steatosis. Spleen and kidneys are unremarkable. The distended urinary bladder appears thin-walled. Bowel is nondilated. No free air, diverticulitis, or appendicitis. Dictated By: Ching Gonzalez MD Electronically Signed By: Signed Date/Time Reevaluation Time: 18:25 Last Vital Signs Date Time Temp Pulse Resp B/P (MAP) Pulse Ox O2 Delivery O2 Flow Rate FiO2 11/16/19 15:55 98.4 94 18 137/87 (104) 99 Room Air Reevaluation Impression EKG and chest x-ray are unremarkable. No sign of ischemia or pulmonary edema. CT scan and lipase consistent with acute pancreatitis. CT scan also notes possible pancreatic pseudocyst. Patient receiving IV fluids, pain medication antiemetics. Will require admission for pancreatitis. Within normal limits. Will admit to panel physician on med/surgical floor. Will continue IV fluids. Antiemetics and pain medication as needed. Disposition: ADMITTED INPATIENT Condition: Serious Christopher Loya MD Nov 16, 2019 16:14
[2019-11-16] MEDS ORDERED: Morphine Sulfate 4mg/ml Inj (IV USE ONLY) IVP ONE ×3 (16:15→20:30)
[2019-11-16] MEDS ORDERED: Omnipaque-300 100ml vial INJ PRN (16:15)
--- NOTE | 2019-11-16 16:37 | NUR ---
ED Nurse Note: Pt says he lives at his friends' houses and will be going to one of those if he is to be discharged.
--- NOTE | 2019-11-16 16:42 | NUR ---
ED Nurse Note: Consent signed for contrast
[2019-11-16 16:43] VITALS: BP 135/90
--- NOTE | 2019-11-16 16:59 | Diagnostic Imaging Report ---
Indication: Shortness of breath Technique: One view of the chest Comparison: none Findings: Lungs and pleural spaces are clear. Heart size is normal. Impression: No acute process
[2019-11-16 17:01] LABS: APPEARANCE,URINE SLIGHTLY CLOUDY; BILIRUBIN, URINE NEGATIVE (NEGATIVE); GLUCOSE, URINE (UA) NEGATIVE (NEGATIVE); KETONES,URINE 2+ (NEGATIVE); LEUKOCYTE ESTERASE ,URINE NEGATIVE (NEGATIVE); NITRITE,URINE NEGATIVE (NEGATIVE); PH,URINE 7 (4.5-8.0); PROTEIN,URINE 2+ (NEGATIVE); UROBILINOGEN,URINE 1 MG/DL (0.0-1.0)
[2019-11-16 17:07] LABS: COLOR,URINE YELLOW
[2019-11-16 17:08] LABS: ANION GAP 14 mmol/L (5-15); BLOOD UREA NITROGEN 5 mg/dL (7-18); CALCIUM 9.6 MG/DL (8.5-10.1); CARBON DIOXIDE 32 MMOL/L (21-32); CHLORIDE 92 MMOL/L (98-107); CREATININE 0.7 MG/DL (0.55-1.30); SODIUM 138 MMOL/L (136-145)
[2019-11-16 17:10] LABS: BASOPHILS % (AUTO) 0.7 % (0.0-2.0); EOSINOPHILS % (AUTO) 0.1 % (0.0-3.0); HEMATOCRIT 42.5 % (42.0-52.0); HEMOGLOBIN 15.1 G/DL (14.2-18.0); LYMPHOCYTES % (AUTO) 8.6 % (20.0-45.0); MEAN CORPUSCULAR VOLUME 97 FL (80-99); MONOCYTES % (AUTO) 8.8 % (1.0-10.0); NEUTROPHILS % (AUTO) 81.9 % (45.0-75.0); PLATELET COUNT 302 K/UL (150-450); RED BLOOD COUNT 4.39 M/UL (4.70-6.10); RED CELL DISTRIBUTION WIDTH 9.8 % (11.6-14.8); WHITE BLOOD COUNT 10.6 K/UL (4.8-10.8)
[2019-11-16 17:18] LABS: ALANINE AMINOTRANSFERASE 61 U/L (12-78); ALBUMIN 3.9 G/DL (3.4-5.0); ALKALINE PHOSPHATASE 136 U/L (46-116); ASPARTATE AMINO TRANSFERASE 128 U/L (15-37); BILIRUBIN,TOTAL 1.5 MG/DL (0.2-1.0)
[2019-11-16 17:19] LABS: BILIRUBIN,DIRECT 0.5 MG/DL (0.0-0.3)
--- NOTE | 2019-11-16 17:35 | NUR ---
ED Nurse Note: Pt in CT
--- NOTE | 2019-11-16 18:20 | Diagnostic Imaging Report ---
Clinical Indication: Abdominal pain for approximately 3 days, exacerbated by eating, epigastric and left upper quadrant tenderness, nausea, vomiting Technique: No oral contrast utilized, per emergency room physician request IV administration nonionic contrast. Venous phase spiral acquisition obtained through the abdomen and pelvis. Multiplanar reconstructions were generated. Total dose length product 600 mGycm. CTDIvol(s) 9.9 mGy. Dose reduction achieved using automated exposure control Comparison: No comparison CT scans. Reference made to abdominal ultrasound dated 01/26/2019 Findings: The liver is enlarged and diffusely hypoattenuating. No focal abnormalities. The gallbladder is unremarkable. The bile ducts are unremarkable. With in the pancreatic head, there is a large contiguous the multilobulated area of low-attenuation which measures roughly 4.4 cm AP by 2 cm transverse by 2 cm craniocaudad. There is generalized enlargement of the pancreatic head and some indistinctness of the peripancreatic fat in the pancreatic head region. The body and tail appear unremarkable. There is no significant peripancreatic phlegmon demonstrated. The spleen, adrenals, kidneys are unremarkable. No renal or ureteral calculi, hydronephrosis, or hydroureter. The bladder is distended. There is no evidence of colonic diverticulosis or diverticulitis. The appendix is only equivocally visualized, but there are no findings to suggest acute appendicitis. Mildly prominent fluid-filled small bowel loops are noted, without evidence of transition point. The distal esophagus, stomach, duodenum are unremarkable. The included lung bases are clear. The bones demonstrate unusual appearance to the left proximal femoral shaft with multiple sclerotic areas intermixed with areas of lucency. Impression: Mild fullness of the pancreatic head and very slight infiltration of the peripancreatic fat, likely indicative of acute pancreatitis 4.4 x 2 x 2 cm complex cystic structure involving head of the pancreas. Most likely a pseudocyst given stated clinical history of pancreatitis. Possibility of cystic neoplasm should also be considered Enlarged fatty liver This agrees with the preliminary interpretation provided overnight by [facility]eradiology service. Unusual appearance to the left proximal femoral shaft, incompletely included. Appearance somewhat suggestive of prior injury and instrumentation, but other etiologies possible. Recommend plain film correlation. This finding was not described on the preliminary report; attending physician Dr. Crews notified at the time of interpretation The CT scanner at [facility] is accredited by the [employer] and the scans are performed using protocols designed to limit radiation exposure to as low as reasonably achievable to attain images of sufficient resolution adequate for diagnostic evaluation.
[2019-11-16 18:28] VITALS: BP 132/92
--- NOTE | 2019-11-16 18:28 | NUR ---
ED Nurse Note: Pt aware he is NPO
[2019-11-16] MEDS ORDERED: Morphine Sulfate 4mg/ml Inj (IV USE ONLY) ONE (18:55)
--- NOTE | 2019-11-16 19:11 | NUR ---
HAND-OFF: Report given to LAUREN Wu. Pt in stable condition; plan of care endorsed.
--- NOTE | 2019-11-16 19:30 | NUR ---
ED Nurse Note: RECIEVED REPORT TO RESUME CARE, PT IN BED AWAKE AND ALERT, IV SITE PATENT WITH FLUIDS INFUSING, PT HERE FOR PANCREATITIS AND WAITING FOR ADMISISON BED, PT REPORTS PAIN AT 7/10 BUT WAS RECENTLY MEDICATED, WILL CONTINUE TO CLOSELY FOR EFFECTIVENESS AND PREPARE FOR ADMISISON.
[2019-11-16] MEDS ORDERED: HYDROmorphone 1mg/ml Carpuject IVP ONE (20:45)
[2019-11-16 21:00] VITALS: BP 128/88
--- NOTE | 2019-11-16 21:15 | NUR ---
ED Nurse Note: PT HAS ROOM FOR ADMISSION, REPORT CALELD TO FLOOR NURSE LAUREN HOUGH, PT IS IN BED AWAKE AND ORIENTED X 4, IV SITE INTACT AND PATENT, PAIN LEVEL AT 5/10, MEDS GIVEN EFFECTIVE, PT BELONGING LIST COMPLETED, NO CP, SOB, OR ANY OTHER COMPLAINTS OR DISCOMFORTS, PT BEING TAKEN TO UNIT VIA GURNEY WITH ER-TECH., NAD NOTED DURING PT TRANSPORT.
--- NOTE | 2019-11-16 21:30 | NUR ---
NURSE NOTES: Received patient from ER, transported via gurney, patient is awake, alert, oriented, IV site is clean dry and intact, belongings list is reviewed, items are accounted for and signed. Oriented patient to the room , call light is within reach, bed is lowered, locked and alarm is on, will continue to monitor for comfort and safety. RN called MD for admit orders.
[2019-11-16] MEDS: NS w/KCl 20mEq 1000ml 1,000 ML IV SCH (23:12)
[2019-11-16] MEDS: Morphine Sulfate 2mg/ml Inj(IV/IM USE ONLY) IVP PRN (23:12)
[2019-11-17] VITALS: BP 146/90
--- NOTE | 2019-11-17 00:30 | History and Physical Report ---
DATE OF ADMISSION: 11/16/2019 REASON FOR ADMISSION: Acute pancreatitis. HISTORY OF PRESENT ILLNESS: This 29-year-old male with alcoholism presented to the emergency room with abdominal pain associated with meals progressing over the past three days. He has had some nonbloody emesis. He usually drinks two to three pints of liquor daily and has continued to do so and has had prior episodes of pancreatitis. He notes some difficulty breathing with chest pain and abdominal pain radiating to the back. She has not had any fevers or chills, hematemesis, or change in bowel habits otherwise. He has been fatigued and reports some sweating. He has not had any upper respiratory symptoms. PAST MEDICAL HISTORY: Hypertension, pancreatitis, wrist repair, prior left femur surgery for malignant tumor. ALLERGIES: Penicillin. SOCIAL HISTORY: Marijuana and daily alcohol use. Denies substance abuse. Nonsmoker. REVIEW OF SYSTEMS: A 10-point review of systems performed, all systems negative other than noted above. PHYSICAL EXAMINATION: VITAL SIGNS: Blood pressure 137/87, heart 94, respirations 18. Afebrile. GENERAL: Well appearing, in moderate distress due to pain. HEENT: Conjunctivae are pink. Sclerae are anicteric. Oropharynx clear. Mucous membranes moist. NECK: Supple. LUNGS: Clear. CARDIAC: Regular rhythm and rate. Normal S1, S2 with no murmur, rubs, or gallop. ABDOMEN: Soft, nondistended. Diffusely tender. No guarding or rebound. NEUROLOGIC: Nonfocal. EXTREMITIES: No edema. LABORATORY DATA: White count 10.6, hemoglobin 15. Urinalysis with 0 to 2 white cells. No red cells. Lipase over 2000. Troponin negative. Albumin 3.9. Total bilirubin 1.5. AST and ALT, 128 and 61. BUN 5, creatinine 0.7, bicarb 32, potassium 3.0, chloride 93, and sodium 138. EKG, sinus rhythm with no acute abnormalities. CAT scan of the abdomen reveals fullness of the pancreatic head with edema, possible cystic structure in the head and uncinate process. Liver is hypodense. Bowel is appearing normal. IMPRESSION: 1. Acute pancreatitis. 2. Alcoholism. 3. Possible pancreatic pseudocyst. 4. Hypokalemia. 5. Transaminitis. 6. Mild hyperglycemia. PLAN: 1. NPO. 2. Pain control. 3. IV fluid hydration. 4. Potassium replacement. 5. Metabolic profile. 6. Withdrawal precautions. 7. GI consultation. 8. Followup imaging studies. Len Crews M.D. DR: DIANA JOB#: [id number] CC: EULOGIO
[2019-11-17] MEDS: Morphine Sulfate 2mg/ml Inj(IV/IM USE ONLY) IVP PRN ×5 (03:37→22:38)
[2019-11-17 04:00] VITALS: BP 150/99
[2019-11-17] MEDS: NS w/KCl 20mEq 1000ml 1,000 ML IV SCH (05:21)
--- NOTE | 2019-11-17 07:27 | NUR ---
HAND-OFF: Report given to Leda AGUILAR.
[2019-11-17 08:00] VITALS: BP_SYST 157; BP_SYST 169; BP_DIAS 101
[2019-11-17 08:21] LABS: ALANINE AMINOTRANSFERASE 56 U/L (12-78); ALBUMIN 3.4 G/DL (3.4-5.0); ALKALINE PHOSPHATASE 128 U/L (46-116); ANION GAP 14 mmol/L (5-15); ASPARTATE AMINO TRANSFERASE 111 U/L (15-37); BILIRUBIN,DIRECT 0.6 MG/DL (0.0-0.3); BILIRUBIN,TOTAL 2.2 MG/DL (0.2-1.0); BLOOD UREA NITROGEN 3 mg/dL (7-18); CALCIUM 8.3 MG/DL (8.5-10.1); CARBON DIOXIDE 27 MMOL/L (21-32); CHLORIDE 97 MMOL/L (98-107); CREATININE 0.5 MG/DL (0.55-1.30); POTASSIUM 4.1 MMOL/L (3.5-5.1); SODIUM 138 MMOL/L (136-145)
[2019-11-17] MEDS ORDERED: Folic Acid 1 MG, Magnesium Sulfate 2,000 MG, Multivitamin - 12 Injection 10 ML in Sodiu... IV SCH (09:00)
[2019-11-17] MEDS ORDERED: Thiamine HCl 100 MG in NS 55 ML IVPB SCH (09:00)
[2019-11-17] MEDS: LORazepam Inj 2mg/ml 1ml IV PRN ×2 (09:05→21:16)
[2019-11-17] MEDS: Folic Acid 1 MG, Magnesium Sulfate 2,000 MG, Multivitamin - 12 Injection 10 ML in Sodiu... IV SCH (10:14)
[2019-11-17] MEDS: Thiamine HCl 100 MG in NS 55 ML IVPB SCH (10:14)
--- NOTE | 2019-11-17 11:25 | NUR ---
WINDOW INSTALLATION SUBCONTRACTOR CONSULT This SW received a consult referral for homelessness and substance abuse on 11/16/2019. SW met w/ pt and completed psychosocial assessment on 11/17/2019. Pt presents as alert and oriented 4x and cooperative. Pt is single, never and has no children. Pt has been homeless for over 10 years. Pt does not have family support and has poor social support. PT has no contact w/ his family members who are residing out of state. Pt's emergency contact is his friend, Ajit Bui [phone]. Pt's friend was present w/ pt in the room. Pt receives no income, is currently unemployed, abuses THC and ETOH. PT denies using tobacco. Pt has hx of AA meeting, IP& OP SUB rehab programs. Pt believes ETOH abuse is a problem. SW recommended pt to consider SUB rehab programs. However, pt declined and stated "I tried but I didn't like them" PT refused to go to a homeless fci stating that he would rather stay on the streets or sleep at the [place]. Pt did not provide his whereabouts, just stating "somewhere close here" Pt has no ID w/ him. SW explained the procedure of applying public benefts including General Relief, Food Stamp, and getting free-ID form. SW provided following resources; DMV locations, contact numbers, hours of operation, the closest DPSS office location, GR application form, winter homeless fci list, [facility] Homeless Outreach location, SUB ABUSE rehab resource. PT verbalized understanding. Pt has no hx of abuse, and no hx of mental illness. Pt denies SI/HI. Pt is ambulatory w/o DME. Pt is independent w/ grooming, cooking, bathing and dressing. Pt verbalized he is able to provide self-care and navigate community resource. PT did not share any other concern/issue. Signed: 11/17/19 at 1135 by SHI CHAMBERS <Co-Signature Required>
[2019-11-17 12:00] VITALS: BP 155/99
--- NOTE | 2019-11-17 13:34 | NUR ---
NURSE NOTES: ADMINISTERED ATIVAN 0.5 MG IV ORDERED AND SCANNED IN [employer]. WENT TO DO RE-ASSESSMENT;UNABLE TO DO. WASTE DONE IN [facility] WITH BELINDA TATUM RN. SPOKE TO DARRON IN PHARMACY TO EXPLAIN. MANUALLY ADMIN MEDICATION EXPLAINED BY [facility].
[2019-11-17 16:05] VITALS: BP 140/104
--- NOTE | 2019-11-17 19:38 | NUR ---
HAND-OFF: Report given to FRANCES RICHARDSON RN.
[2019-11-17 20:00] VITALS: BP 138/93
--- NOTE | 2019-11-17 20:00 | NUR ---
NURSE NOTES: Received patient awake in bed, visitor at the bedside, able to make needs known. No s/s of acute distress. IV access patent, running IVF maintenance at 150ml/hr. Bed low and locked, patient wearing non slip socks.
--- NOTE | 2019-11-17 22:00 | General Progress Note ---
Assessment/Plan Assessment/Plan: Assessment - EtOH abuse - EtOH pancreatitis with pseudocyst Recommendations - NPO - IVF - increase - H2B - follow labs / exam - advised to d/c EtOH Subjective Allergies: Coded Allergies: PENICILLINS (Verified Allergy, Unknown, 01/26/19) Objective Last 24 Hour Vital Signs Date Time Temp Pulse Resp B/P (MAP) Pulse Ox O2 Delivery O2 Flow Rate FiO2 11/17/19 20:00 97.8 79 20 138/93 (108) 98 11/17/19 16:55 98.2 11/17/19 16:05 98.2 104 21 140/104 (116) 98 11/17/19 12:00 98.6 77 18 155/99 (117) 97 11/17/19 09:00 Room Air 11/17/19 08:00 98.1 85 20 157/101 (119) 97 11/17/19 04:00 97.9 81 20 150/99 (116) 98 11/17/19 00:00 98.1 78 19 146/90 (108) 98 11/16/19 22:08 98.2 Intake and Output 11/16/19 11/17/19 19:00 07:00 Intake Total 2000 ml Balance 2000 ml Intake Oral 0 ml IV Total 2000 ml Laboratory Tests 11/17/19 06:00: Sodium Level 138, Potassium Level 4.1, Chloride Level 97L, Carbon Dioxide Level 27, Anion Gap 14, Blood Urea Nitrogen 3L, Creatinine 0.5L, Estimat Glomerular Filtration Rate > 60, Glucose Level 77, Calcium Level 8.3L, Magnesium Level 1.7L , Total Bilirubin 2.2H, Direct Bilirubin 0.6H, Aspartate Amino Transf (AST/SGOT ) 111H, Alanine Aminotransferase (ALT/SGPT) 56, Alkaline Phosphatase 128H, Total Protein 7.4, Albumin 3.4, Lipase > 2000H, Vitamin B12 Level 557, Folate 10.0, Thyroid Stimulating Hormone (TSH) 4.998H Height (Feet): 6 Height (Inches): 4.00 Weight (Pounds): 160 Gonzalez Mac MD Nov 17, 2019 22:00
[2019-11-18] VITALS: BP 149/93
[2019-11-18] MEDS: HYDROmorphone 1mg/ml Carpuject IVP PRN ×5 (04:15→21:13)
[2019-11-18 04:23] VITALS: BP 128/86
--- NOTE | 2019-11-18 04:30 | Consultation ---
DATE OF CONSULTATION: 11/17/2019 GASTROENTEROLOGY CONSULTATION CONSULTING PHYSICIAN: Gonzalez Mac M.D. REFERRING PHYSICIAN: Len Crews M.D. CHIEF COMPLAINT: I was asked to see this patient by Dr. Len Crews for evaluation of pancreatitis. HISTORY OF PRESENT ILLNESS: The patient is a pleasant 29-year-old white male with extensive alcohol history. He drinks two pints of vodka a day. He comes in with a third episode of pancreatitis. The patient states that he has had two such episodes in the past, but this episode appeared to be severe with respect to his pain. The patient has had three days of abdominal pain radiating to the back with nausea and vomiting, and came to the hospital with lipase level of over 2000. His glucose is elevated to 140 and his bilirubin is elevated to 1.5. In addition, on the imaging studies, there was a CT scan of the abdomen and pelvis had shown fullness of the pancreas with surrounding edema as well as 5 x 2 cm cystic structure, which has resulted in a pseudocyst. The patient still has significant abdominal pain today. His bowel movements have been solid. PAST MEDICAL HISTORY: History of hypertension. PAST SURGICAL HISTORY: Status post hip and wrist surgery. FAMILY HISTORY: Positive for hypertension and myocardial infarction in his father. SOCIAL HISTORY: The patient is single. He has no children. He drinks extensively as described above, but smokes occasional marijuana. REVIEW OF SYSTEMS: Otherwise negative. PHYSICAL EXAMINATION: GENERAL: Thin white man, seen in his room. HEENT: Normocephalic and atraumatic. Sclerae anicteric. Oropharynx clear. NECK: Supple. CHEST: Clear to auscultation. CARDIOVASCULAR: Revealed regular rate. ABDOMEN: Soft, but diffusely tender without masses. EXTREMITIES: Revealed no edema. LABORATORY DATA: Noted. ASSESSMENT: This patient presents with significant episode of pancreatitis, which is now complicated with pseudocyst formation. The patient was strongly advised to discontinue drinking alcohol indefinitely and the risks to his health given the above factors were outlined in length. At this point, the patient is having too much pain and tenderness so intravenous nutrition may be necessary, but it is felt that he will recover uneventfully. The patient's pseudocyst will be managed conservatively at this time. His laboratory results to be followed. He should be aggressively hydrated. Multivitamins with thiamine and folate should be given. RECOMMENDATIONS: Per above discussion and per orders written in the chart. Thank you for asking me to participate in the care of this patient. Gonzalez Mac M.D. DR: DAVID JOB#: [id number] CC: EULOGIO
[2019-11-18 07:28] LABS: BASOPHILS % (AUTO) 0.9 % (0.0-2.0); EOSINOPHILS % (AUTO) 0.2 % (0.0-3.0); HEMATOCRIT 39.9 % (42.0-52.0); HEMOGLOBIN 13.7 G/DL (14.2-18.0); LYMPHOCYTES % (AUTO) 22.2 % (20.0-45.0); MEAN CORPUSCULAR VOLUME 102 FL (80-99); NEUTROPHILS % (AUTO) 65.7 % (45.0-75.0); PLATELET COUNT 291 K/UL (150-450); RED BLOOD COUNT 3.91 M/UL (4.70-6.10); RED CELL DISTRIBUTION WIDTH 11.3 % (11.6-14.8); WHITE BLOOD COUNT 4.9 K/UL (4.8-10.8)
--- NOTE | 2019-11-18 07:41 | NUR ---
HAND-OFF: Report given to LAUREN Gabriel.
--- NOTE | 2019-11-18 07:44 | NUR ---
NURSE NOTES: PT AXOX4, RESTING IN BED. PT IS AXOX4, CALM, IN NO APPARENT DISTRESS AT THIS TIME. PT STATES ABDOMINAL PAIN 8-9/10. DENIES N/V. PT REQUESTS FOR PRN ATIVAN. RN EDUCATED PT MUST CHECK BP BEFORE ADMINISTERING MED. PT VERBALIZED UNDERSTANDING. CALL LIGHT WITHIN REACH. WILL CONTINUE TO MONITOR.
[2019-11-18 07:51] VITALS: BP 137/88
[2019-11-18] MEDS: LORazepam Inj 2mg/ml 1ml IV PRN ×2 (07:58→14:53)
[2019-11-18 07:59] LABS: ALANINE AMINOTRANSFERASE 48 U/L (12-78); ALBUMIN 3.1 G/DL (3.4-5.0); ALBUMIN/GLOBULIN RATIO 0.7 (1.0-2.7); ALKALINE PHOSPHATASE 120 U/L (46-116); ANION GAP 13 mmol/L (5-15); ASPARTATE AMINO TRANSFERASE 79 U/L (15-37); BILIRUBIN,TOTAL 1.1 MG/DL (0.2-1.0); BLOOD UREA NITROGEN 5 mg/dL (7-18); CALCIUM 8.5 MG/DL (8.5-10.1); CARBON DIOXIDE 25 MMOL/L (21-32); CHLORIDE 99 MMOL/L (98-107); CREATININE 0.6 MG/DL (0.55-1.30); POTASSIUM 3.5 MMOL/L (3.5-5.1); SODIUM 137 MMOL/L (136-145)
[2019-11-18 08:01] LABS: BILIRUBIN,DIRECT 0.4 MG/DL (0.0-0.3)
--- NOTE | 2019-11-18 10:11 | NUR ---
RADIOLOGY DEPT., LEFT FEMUR X-RAYS COMPLETED.-P.DYE
[2019-11-18] MEDS: Thiamine HCl 100 MG in NS 55 ML IVPB SCH (10:51)
[2019-11-18] MEDS: Folic Acid 1 MG, Magnesium Sulfate 2,000 MG, Multivitamin - 12 Injection 10 ML in Sodiu... IV SCH (10:51)
--- NOTE | 2019-11-18 11:15 | Progress Note ---
DATE: 11/17/2019 INTERNAL MEDICINE PROGRESS NOTE SUBJECTIVE: The patient has abdominal pain. No vomiting. Less nausea. OBJECTIVE: VITAL SIGNS: Reveal elevated blood pressure trend. NECK: Supple. LUNGS: Clear. CARDIAC: Regular. ABDOMEN: Diffusely tender with mild guarding. NEUROLOGIC: Nonfocal. LABORATORY DATA: Labs are reviewed. IMPRESSION: 1. Alcohol abuse. 2. Alcoholic pancreatitis. 3. Pseudocyst. 4. Hypomagnesemia. 5. Possible mild hypothyroidism. 6. Hx of left femur tumor resection. PLAN: 1. Hydration. 2. NPO. 3. Pain control. 4. IV magnesium. 5. DVT prophylaxis. 6. Withdrawal precautions. 7. Check left femur xray. Len Crews M.D. DR: Henry JOB#: [id number] CC: EULOGIO
[2019-11-18 12:00] VITALS: BP 147/100
--- NOTE | 2019-11-18 14:30 | Diagnostic Imaging Report ---
Indication: Leg pain. Bone lesion noted on CT Technique: 4 views of the left femur Comparison: Dilation made to CT of the abdomen 11/16/2019 Findings: Bone mineralization within normal limits. There is no evidence of acute fracture or dislocation. Centered in the proximal femoral shaft there is a lytic lesion with well-defined borders and a narrow zone of transition. There is no associated aggressive periosteal reaction. No associated cortical break or fracture. No radiopaque foreign body. Impression: Lytic lesion in the left proximal femur without aggressive features or associated pathologic fracture. Differential considerations include benign lesion such as nonossifying fibroma, fibrous dysplasia or bone cyst. Additional etiologies however not excluded. Recommend follow-up exam in 3-6 months to assess stability.
--- NOTE | 2019-11-18 14:40 | NUR ---
CASE MANAGEMENT: INITIAL REVIEW 29YR OLD MALE BIBA FROM STREET CC: ABD PAIN SI:ACUTE PANCREATITIS . PANCREATIC PSEUDOCYST 98.4 94 18 137/87 99% ON RA K+3.0 CL-92 BUN 5 BG 140 TBIL/DBIL 1.5/0.5 AST 128 ALK-PHOS 136 LIPASE >2000 IS:IVF NS BOLUSX3 IV MORPHINE SULFATE X2 IV KCL X1 IV ZOFRAN X3 CT ABD/PEL CHEST X-RAY \: 3E MED SURG UNIT DCP: PATIENT REFUSE LONG-TERM PROVIDED BY [employer] CASE MANAGEMENT: REVIEW 11/17/2019 SI:ACUTE PANCREATITIS . PANCREATIC PSEUDOCYST 98.2 104 21 140/104 98% ON RA LIPASE >2000 CL-97 BUN 3 CREAT 0.5 CA+ 8.3 MG 1.7 TBIL/DBIL 2.2/0.6 AST 111 ALK-PHOS 128 IS:IV KCL @150ML/HR IV THIAMINE Q24HR IV BANANA BAG Q24HR \: 3E MED SURG UNIT DCP: PATIENT REFUSE LONG-TERM PROVIDED BY [employer] CASE MANAGEMENT: REVIEW 11/18/2019 SI:ACUTE PANCREATITIS . PANCREATIC PSEUDOCYST 97.3 80 18 147/100 100% ON RA LIPASE 654 BUN 5 TBIL/DBIL 1.1/0.4 AST 79 ALK-PHOS 120 IS:IV MG SULFATE X2 BAGS IV KCL @150ML/HR IV THIAMINE Q24HR IV BANANA BAG Q24HR X-RAY FEMUR \: 3E MED SURG UNIT DCP: PATIENT REFUSE LONG-TERM PROVIDED BY [employer]UR[employer] PLAN: NPO IVF
[2019-11-18 16:00] VITALS: BP 152/118
--- NOTE | 2019-11-18 19:45 | NUR ---
HAND-OFF: Report given to Angelo KEARNEY RN.
--- NOTE | 2019-11-18 19:46 | NUR ---
NURSE NOTES: Received patient in no apparent distress. A&OX4. IV site patent and intact. Bed in lowest position. Call light within reach. Will continue to monitor.
[2019-11-18 20:00] VITALS: BP 154/108
--- NOTE | 2019-11-18 22:45 | General Progress Note ---
Assessment/Plan Assessment/Plan: Assessment - EtOH abuse - EtOH pancreatitis with pseudocyst Recommendations - NPO --> clears later today - IVF - increase - H2B - follow labs / exam - advised to d/c EtOH Subjective Allergies: Coded Allergies: Pork (Verified Allergy, Mild, 11/18/19) upset stomach PENICILLINS (Verified Allergy, Unknown, 01/26/19) Subjective Better still with pain no vomiting Objective Last 24 Hour Vital Signs Date Time Temp Pulse Resp B/P (MAP) Pulse Ox O2 Delivery O2 Flow Rate FiO2 11/18/19 21:00 Room Air 11/18/19 20:00 98.3 84 17 154/108 (123) 96 11/18/19 16:00 96.7 96 18 152/118 (129) 96 11/18/19 12:00 97.3 80 18 147/100 (116) 100 11/18/19 09:00 Room Air 11/18/19 07:51 97.9 72 18 137/88 (104) 97 11/18/19 04:45 97.6 11/18/19 04:23 97.6 80 19 128/86 (100) 100 11/18/19 00:00 97.5 96 18 149/93 (111) 98 11/17/19 23:41 Room Air 11/17/19 23:08 97.8 Intake and Output 11/17/19 11/18/19 19:00 07:00 Intake Total 1481 ml 150 ml Output Total 525 ml Balance 956 ml 150 ml IV Total 1481 ml 150 ml Output Urine Total 525 ml # Voids 2 Laboratory Tests 11/18/19 05:40: White Blood Count 4.9, Red Blood Count 3.91L, Hemoglobin 13.7L, Hematocrit 39.9L , Mean Corpuscular Volume 102H, Mean Corpuscular Hemoglobin 35.0H, Mean Corpuscular Hemoglobin Concent 34.3, Red Cell Distribution Width 11.3L, Platelet Count 291, Mean Platelet Volume 5.4L, Neutrophils (%) (Auto) 65.7, Lymphocytes (%) (Auto) 22.2, Monocytes (%) (Auto) 11.0H, Eosinophils (%) (Auto) 0.2, Basophils (%) (Auto) 0.9, Sodium Level 137, Potassium Level 3.5, Chloride Level 99, Carbon Dioxide Level 25, Anion Gap 13, Blood Urea Nitrogen 5L, Creatinine 0.6, Estimat Glomerular Filtration Rate > 60, Glucose Level 68L, Calcium Level 8.5, Total Bilirubin 1.1H, Direct Bilirubin 0.4H, Aspartate Amino Transf (AST/SGOT) 79H, Alanine Aminotransferase (ALT/SGPT) 48, Alkaline Phosphatase 120H, Total Protein 7.5, Albumin 3.1L, Globulin 4.4, Albumin/ Globulin Ratio 0.7L, Lipase 654H Height (Feet): 6 Height (Inches): 4.00 Weight (Pounds): 159 Objective Thin WM NCAT supple CTA RR abd soft ND, (+) TTP - decreaed no edema Gonzalez Mac MD Nov 18, 2019 22:44
[2019-11-19] VITALS: BP 141/94
[2019-11-19] MEDS: HYDROmorphone 1mg/ml Carpuject IVP PRN ×6 (01:21→23:01)
[2019-11-19 04:00] VITALS: BP 144/92
--- NOTE | 2019-11-19 04:01 | Progress Note ---
DATE: 11/18/2019 INTERNAL MEDICINE PROGRESS NOTE SUBJECTIVE: Less abdominal pain. Less nausea. Diet being advanced. OBJECTIVE: VITAL SIGNS: Blood pressure labile at times with pain. LUNGS: Clear. CARDIAC: Regular. ABDOMEN: Soft. EXTREMITIES: No edema. LABORATORY AND DIAGNOSTIC DATA: X-ray of the left femur shows a lucent area with clear borders. Amylase has decreased to less than 700. IMPRESSION: 1. Acute pancreatitis. 2. Alcoholism and alcohol abuse. 3. Pseudocyst. 4. History of left femur tumor with resection now with signs of possible residual focus of questionable activity. PLAN: 1. Hydration. 2. Pain control. 3. Advance diet with cautions. 4. Serial lipase studies. 5. Outpatient PET scan. Len Crews M.D. DR: CIELO JOB#: [id number] CC:
[2019-11-19 06:35] LABS: BASOPHILS % (AUTO) 1.9 % (0.0-2.0); HEMATOCRIT 40.9 % (42.0-52.0); HEMOGLOBIN 14.1 G/DL (14.2-18.0); LYMPHOCYTES % (AUTO) 33.8 % (20.0-45.0); MEAN CORPUSCULAR VOLUME 102 FL (80-99); MONOCYTES % (AUTO) 12.4 % (1.0-10.0); NEUTROPHILS % (AUTO) 50.9 % (45.0-75.0); PLATELET COUNT 367 K/UL (150-450); RED BLOOD COUNT 4.02 M/UL (4.70-6.10); RED CELL DISTRIBUTION WIDTH 11.4 % (11.6-14.8); WHITE BLOOD COUNT 5.1 K/UL (4.8-10.8)
[2019-11-19 07:13] LABS: ALANINE AMINOTRANSFERASE 51 U/L (12-78); ALBUMIN 3.1 G/DL (3.4-5.0); ALKALINE PHOSPHATASE 110 U/L (46-116); ANION GAP 13 mmol/L (5-15); ASPARTATE AMINO TRANSFERASE 78 U/L (15-37); BILIRUBIN,DIRECT 0.3 MG/DL (0.0-0.3); BILIRUBIN,TOTAL 0.9 MG/DL (0.2-1.0); BLOOD UREA NITROGEN 5 mg/dL (7-18); CALCIUM 8.6 MG/DL (8.5-10.1); CARBON DIOXIDE 24 MMOL/L (21-32); CHLORIDE 101 MMOL/L (98-107); CREATININE 0.6 MG/DL (0.55-1.30); POTASSIUM 3.7 MMOL/L (3.5-5.1); SODIUM 138 MMOL/L (136-145)
--- NOTE | 2019-11-19 07:30 | NUR ---
HAND-OFF: Report given to Hina Briggs RN.
--- NOTE | 2019-11-19 07:39 | NUR ---
NURSE NOTES: received report from LAUREN Dunn. patient in bed, alert, oriented. verbally responsive. no respiratory distress noted. no c/o pain at this time. IV on RFA20g. running NS 20kcl@100/hr. bed in the lowest position and locked. call light within reach. will continue to provide plan of care.
[2019-11-19 08:00] VITALS: BP 145/87
[2019-11-19] MEDS: NS w/KCl 20mEq 1000ml 1,000 ML IV SCH ×3 (09:00→23:09)
[2019-11-19] MEDS ORDERED: Tubing IV Secondary IV ONE (10:05)
[2019-11-19] MEDS: Thiamine HCl 100 MG in NS 55 ML IVPB SCH (10:26)
--- NOTE | 2019-11-19 10:35 | NUR ---
*-* INSURANCE *-* ALL CLINICALS AND REVIEWS HAVE BEEN FAXED TO: AS[facility] KINNEY KARLA:TIERRA P: [phone] F: [phone]
[2019-11-19] MEDS: Folic Acid 1 MG, Magnesium Sulfate 2,000 MG, Multivitamin - 12 Injection 10 ML in Sodiu... IV SCH (11:33)
[2019-11-19 12:00] VITALS: BP 149/100
[2019-11-19 16:00] VITALS: BP 155/94
[2019-11-19] MEDS ORDERED: NS w/KCl 20mEq 1000ml 1,000 ML IV SCH (16:00)
--- NOTE | 2019-11-19 19:05 | NUR ---
HAND-OFF: Report given to LAUREN Dunn.
--- NOTE | 2019-11-19 19:24 | NUR ---
NURSE NOTES: Received patient in no apparent distress. A&OX4. IV site patent and intact. Bed in lowest position. Call light within reach. Will continue to monitor.
[2019-11-19 20:00] VITALS: BP 145/98
--- NOTE | 2019-11-19 22:32 | General Progress Note ---
Assessment/Plan Assessment/Plan: Assessment - EtOH abuse - EtOH pancreatitis with pseudocyst Recommendations - advance diet - IVF - H2B - follow labs / exam - advised to d/c EtOH Subjective Allergies: Coded Allergies: Pork (Verified Allergy, Mild, 11/18/19) upset stomach PENICILLINS (Verified Allergy, Unknown, 01/26/19) Subjective Better still with pain no vomiting Objective Last 24 Hour Vital Signs Date Time Temp Pulse Resp B/P (MAP) Pulse Ox O2 Delivery O2 Flow Rate FiO2 11/19/19 21:00 Room Air 11/19/19 20:00 98.4 78 18 145/98 (114) 99 11/19/19 16:00 98.1 68 20 155/94 (114) 98 11/19/19 12:00 98.0 72 18 149/100 (116) 99 11/19/19 09:00 Room Air 11/19/19 08:00 98.3 68 20 145/87 (106) 99 11/19/19 04:00 98.2 76 17 144/92 (109) 96 11/19/19 00:00 98.1 72 18 141/94 (110) 96 Intake and Output 11/18/19 11/19/19 19:00 07:00 Intake Total 1586 ml 960 ml Output Total 1900 ml Balance 1586 ml -940 ml Intake Oral 480 ml 360 ml IV Total 1106 ml 600 ml Output Urine Total 1900 ml # Voids 3 4 Laboratory Tests 11/19/19 05:45: White Blood Count 5.1, Red Blood Count 4.02L, Hemoglobin 14.1L, Hematocrit 40.9L , Mean Corpuscular Volume 102H, Mean Corpuscular Hemoglobin 35.0H, Mean Corpuscular Hemoglobin Concent 34.4, Red Cell Distribution Width 11.4L, Platelet Count 367, Mean Platelet Volume 4.6L, Neutrophils (%) (Auto) 50.9, Lymphocytes (%) (Auto) 33.8, Monocytes (%) (Auto) 12.4H, Eosinophils (%) (Auto) 1.0, Basophils (%) (Auto) 1.9, Sodium Level 138, Potassium Level 3.7, Chloride Level 101, Carbon Dioxide Level 24, Anion Gap 13, Blood Urea Nitrogen 5L, Creatinine 0.6, Estimat Glomerular Filtration Rate > 60, Glucose Level 66L, Calcium Level 8.6, Total Bilirubin 0.9, Direct Bilirubin 0.3, Aspartate Amino Transf (AST/SGOT) 78H, Alanine Aminotransferase (ALT/SGPT) 51, Alkaline Phosphatase 110, Total Protein 7.4, Albumin 3.1L, Lipase 541H Height (Feet): 6 Height (Inches): 4.00 Weight (Pounds): 159 Objective Thin WM NCAT supple CTA RR abd soft ND, (+) TTP - decreaed no edema Gonzalez Mac MD Nov 19, 2019 22:32
[2019-11-20] VITALS: BP 152/92
[2019-11-20 04:00] VITALS: BP 158/98
--- NOTE | 2019-11-20 05:00 | Progress Note ---
DATE: 11/19/2019 INTERNAL MEDICINE PROGRESS NOTE SUBJECTIVE: The patient with better ability to tolerate oral intake. Still with abdominal pain albeit improved. Still with nausea. No vomiting. The patient states that the tumor in his left femur was benign and current x-rays are consistent with that. OBJECTIVE: VITAL SIGNS: Blood pressure 145/98, pulse 78, and respirations 18. ABDOMEN: There is mild abdominal tenderness still present. No guarding or rebound. IMPRESSION: 1. Alcohol abuse. 2. Alcoholic pancreatitis with pseudocyst. 3. 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 4. Elevated blood pressure likely associated with pain. PLAN: 1. Hydration. 2. Pain control. 3. P.r.n. antihypertensives. 4. Reassess for discharge. 5. Follow-up lipase level. Len Crews M.D. DR: FREDIS JOB#: [id number] CC:
[2019-11-20] MEDS: HYDROmorphone 1mg/ml Carpuject IVP PRN ×3 (05:37→17:10)
--- NOTE | 2019-11-20 07:24 | NUR ---
HAND-OFF: Report given to Meme AGUILAR.
[2019-11-20 08:00] VITALS: BP 132/80
--- NOTE | 2019-11-20 08:11 | NUR ---
CASE MANAGEMENT: REVIEW 11/19/2019 SI:ACUTE PANCREATITIS . PANCREATIC PSEUDOCYST 98.3 68 20 145/87 99% ON RA LIPASE 541 BG 66 AST 78 IS:IV KCL @100ML/HR IV THIAMINE Q24HR IV BANANA BAG Q24HR IV DILAUDID Q4HR/PRN \: 3E MED SURG UNIT PLAN: CLEAR LIQ DIET CASE MANAGEMENT: REVIEW 11/20/2019 SI:ACUTE PANCREATITIS . PANCREATIC PSEUDOCYST 98.0 78 18 158/98 98% ON RA IS:IV KCL @100ML/HR IV THIAMINE Q24HR IV BANANA BAG Q24HR IV DILAUDID Q4HR/PRN \: 3E MED SURG UNIT PLAN: REASSESS FOR DISCHARGE
[2019-11-20] MEDS: Folic Acid 1 MG, Magnesium Sulfate 2,000 MG, Multivitamin - 12 Injection 10 ML in Sodiu... IV SCH (10:00)
[2019-11-20] MEDS: Thiamine HCl 100 MG in NS 55 ML IVPB SCH (10:00)
--- NOTE | 2019-11-20 13:24 | NUR ---
NURSE NOTES: gave instructions to discharge pt after dinner, if oral intake is tolerated. Pt informed of orders. Follow up call made to Mars Samuel in regards to clarification of orders, for use of fluids.
--- NOTE | 2019-11-20 15:07 | NUR ---
RD ASSESSMENT & RECOMMENDATIONS SEE CARE ACTIVITY FOR COMPLETE ASSESSMENT DAILY ESTIMATED NEEDS: Needs based on Pancreatitis/ 72kg 25-30 kcals/kg 5450-7624 total kcals 1-1.5 g protein/kg 72-108 g total protein 25-30 mL/kg 6297-0827 total fluid mLs NUTRITION DIAGNOSIS: Altered nutrition related lab values R/T alcoholic pancreatitis as evidenced by elev lipase (>2000 -> 541), elev AST, trend down. CURRENT DIET:BLAND PO DIET RECOMMENDATIONS: Low Fat ADDITIONAL RECOMMENDATIONS: * Standing wt as able for accurate CBW * Monitor PO tolerance and acceptance * Add MVI x 1, Folic acid 1mg QD, Thiamine 100mg QD -> H/o ETOH abuse * Monitor lipase trend
--- NOTE | 2019-11-20 15:08 | NUR ---
NURSE NOTES: Pt complained of abdominal pain, pain medication provided and effective
[2019-11-20 16:00] VITALS: BP 114/68
--- NOTE | 2019-11-20 18:14 | General Progress Note ---
Assessment/Plan Assessment/Plan: Assessment - EtOH abuse - EtOH pancreatitis with pseudocyst Recommendations - advance diet - IVF - H2B - follow labs / exam - advised to d/c EtOH - OK for d/c from GI standpoint Subjective Allergies: Coded Allergies: Pork (Verified Allergy, Mild, 11/18/19) upset stomach PENICILLINS (Verified Allergy, Unknown, 01/26/19) Subjective Better still with pain no vomiting Objective Last 24 Hour Vital Signs Date Time Temp Pulse Resp B/P (MAP) Pulse Ox O2 Delivery O2 Flow Rate FiO2 11/20/19 09:00 Room Air 11/20/19 08:00 97.9 77 132/80 (97) 11/20/19 04:00 98.0 78 18 158/98 (118) 98 11/20/19 00:00 98.2 64 18 152/92 (112) 98 11/19/19 21:00 Room Air 11/19/19 20:00 98.4 78 18 145/98 (114) 99 Intake and Output 11/19/19 11/20/19 19:00 07:00 Intake Total 1287 ml 1100 ml Balance 1287 ml 1100 ml IV Total 1287 ml 1100 ml # Voids 2 4 Height (Feet): 6 Height (Inches): 4.00 Weight (Pounds): 159 Objective Thin WM NCAT supple CTA RR abd soft ND, (+) TTP - decreaed no edema Gonzalez Mac MD Nov 20, 2019 18:14
--- NOTE | 2019-11-20 20:18 | NUR ---
NURSE NOTES: Pt discharged , provided with snacks and juice. States he will be going to a friend home , who was at bedside. Friend did not want to provide address , but stated it was walking distance.Homeless questionnaire rendered with pt. States that rn social work has given him information on shelters, and mental health needs, but he does not need it at this time. Has appropriate clothes for weather additional clothing items refused. Dr Crews here earlier in shift gave clearance to discharge pt after dinner if meal was tolerated. Pt informed of orders, eager for discharge stated he felt better. IV removed. Has belonging , belongings list signed , . Discharge packet signed to include diet for pancreatics, and s/s that would warrant return to ER
--- NOTE | 2019-11-22 10:42 | Discharge Summary ---
Discharge Summary Discharge Summary _ DATE OF ADMISSION: 11/16/2019 DATE OF DISCHARGE: 11/20/2019 DISCHARGED BY: Dr. Len Crews CONSULTANTS: Dr. Gonzalez Mac BRIEF HOSPITAL COURSE: Patient is a 29-year-old male, with alcoholism, who presented to the emergency room due to abdominal pain associated with meals, progressing over the past 3 days. He had nonbloody emesis. He usually drinks 2 to 3 pints of liquor daily and continued to do so. He had prior episodes of pancreatitis. He noted difficulty breathing, with chest pain and abdominal pain radiating to the back. He denied any fever or chills, hematemesis or change in bowel habits. He reported fatigue and swelling. He did not have any upper respiratory symptoms. Upon evaluation at the ED, vital signs were stable. Blood work did not show any leukocytosis. Hemoglobin and hematocrit were stable. Potassium 3.0. Bilirubin elevated to 1.5. Direct bilirubin 0.5. Lipase elevated to greater than 2000. Troponin was negative. EKG showed normal sinus rhythm with no acute changes. Chest x-ray did not show any acute cardiopulmonary disease. CT of the abdomen and pelvis showed fullness in the head of the pancreas with surrounding edema concerning for pancreatitis. Indeterminate 5.3 x 2.2 cm lobulated cystic structure involving the head and uncinate process of the pancreas, possibly a pseudocyst. Gallbladder distention. No calcified gallstones or biliary dilatation. Liver is diffusely hypodense suggestive of steatosis. Spleen and kidneys unremarkable. Patient was then admitted for evaluation of acute pancreatitis. He was placed on n.p.o. He was given IV hydration. Potassium repleted. He was given pain control. He was placed on alcohol withdrawal seizure precautions. He was given multivitamins, thiamine and folate. He was given banana bag. He was counseled against alcohol abuse. GI was consulted. Pancreatic pseudocyst will be managed conservatively. He was given IV potassium and magnesium supplements. Lipase trended down. He was started on clear liquid diet. Patient had a history of left femur tumor with resection. X-ray of the left femur showed a lucent area with clear borders. Patient with signs of possible residual focus of questionable activity. Patient will eventually need an outpatient PET scan. Diet was advanced. He was able to tolerate diet. Lipase continued to downtrend. He was cleared for discharge home. Advise EtOH cessation. 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 DISCHARGE MEDICATIONS: No home meds. DISCHARGE INSTRUCTIONS: Follow-up in a week. I have been assigned to complete a discharge summary on this account, I was not involved with the patient's management.--ROCÍO Carney Jacqueline Robles NP Nov 22, 2019 10:42
--- NOTE | 2019-11-23 11:44 | NUR ---
*-* INSURANCE *-* UPDATED CLINICALS AND DISCHARGE SUMMARY HAS BEEN FAXED TO: ASAD KINNEY LEVAR:TIERRA P: [phone] F: [phone]
== END 2019-11-20 18:50 | disposition home or self-care (01) | DRG 439 ==
LOC: EDBD 16:02 → EMR 16:48 → 3E 18:55 → EDBEDREQ 20:36 → SDSOVERFLO 11-17 09:24 → 3E 11-17 09:26
DX: K85.20 Alcohol induced acute pancreatitis without necrosis or infection (principal); K86.3 Pseudocyst of pancreas; F10.20 Alcohol dependence, uncomplicated; E83.42 Hypomagnesemia; I10 Essential (primary) hypertension; Z88.0 Allergy status to penicillin; E87.6 Hypokalemia; R73.9 Hyperglycemia, unspecified; R03.0 Elevated blood-pressure reading, without diagnosis of hypertension; Z59.0 Homelessness; E03.9 Hypothyroidism, unspecified
CPT/HCPCS: 36415; 71045; 74177; 80048; 80053; 80076; 81003; 82248; 82607; 82746; 83690; 83735; 84443; 84484; 85025; 93005; 96361; 96374; 96375; 96376; 99285; J2405; J7030